=== PATIENT | male | born 1955 | race Caucasian/White ===

== ENCOUNTER 2018-03-27 19:16 | Emergency (ER) | payer BC, MEDICARE ==
[~2018-03-27] VITALS: Ht 195.6 cm; Wt 115.8 kg
[~2018-03-27 19:16] MED LIST: ATOR20TA PO; CLOP75TA35 PO; FEXO1TAB8 PO; FURO-150 PO; HYDR-4070 PO; INSU100I13 SQ; LANTUS SQ; MULT-785 PO
[2018-03-27 21:27] LABS: ALANINE AMINOTRANSFERASE 27 U/L (12-78); ALBUMIN 3.2 G/DL (3.4-5.0); ALBUMIN/GLOBULIN RATIO 1.1 (1.1-1.5); ALKALINE PHOSPHATASE 145 IU/L (46-116); ANION GAP 10 (8-16); ASPARTATE AMINO TRANSFERASE 20 U/L (10-37); BILIRUBIN,TOTAL 0.4 MG/DL (0.1-1.0); BLOOD UREA NITROGEN 50 MG/DL (7-18); BUN/CREATININE RATIO 23.1 (5.4-32.0); CALCIUM 7.7 MG/DL (8.5-10.1); CHLORIDE 108 MMOL/L (99-107); CREATININE 2.16 MG/DL (0.60-1.10); GLUCOSE 180 MG/DL (70-104); POTASSIUM 3.7 MMOL/L (3.5-5.1); SODIUM 146 MMOL/L (135-145); TOTAL CARBON DIOXIDE 27.8 MMOL/L (24-32); TOTAL PROTEIN 6.2 G/DL (6.4-8.2); eGFR 31 ML/MIN
[2018-03-27 21:38] LABS: BASOPHILS % (AUTO) 0.4 % (0-1); EOSINOPHILS # (AUTO) 0.1 X10'3 (0-0.9); EOSINOPHILS % (AUTO) 2.2 % (0-6); HEMATOCRIT 31.8 % (42.0-52.0); HEMOGLOBIN 10.9 g/dl (14.0-17.9); LYMPHOCYTES # (AUTO) 0.7 X10'3 (1.1-4.8); LYMPHOCYTES % (AUTO) 16.3 % (21-51); MEAN CORPUSCULAR HEMOGLOBIN 30.8 PG (27.0-31.0); MEAN CORPUSCULAR HGB CONC 34.3 % (33.0-36.5); MEAN CORPUSCULAR VOLUME 89.8 FL (78-98); MEAN PLATELET VOLUME 10.4 FL (7.4-10.4); MONOCYTES # (AUTO) 0.4 X10'3 (0-0.9); MONOCYTES % (AUTO) 9.1 % (2-12); NEUTROPHILS # (AUTO) 3.2 X10'3 (1.8-7.7); PLATELET COUNT 107 X10'3 (140-440); RED BLOOD COUNT 3.54 X10'6 (4.70-6.10); RED CELL DISTRIBUTION WIDTH 12.8 % (11.5-14.5); WHITE BLOOD COUNT 4.4 X10'3 (4.5-11.0)
[2018-03-27 22:02] LABS: PARTIAL THROMBOPLASTIN TIME 25 SECONDS (22-32); PROTHROMBIN TIME 10.5 SECONDS (9.0-12.0)
[2018-03-27 22:07] VITALS: BP 154/81
[2018-03-27] MEDS ORDERED: apixaban 5mg tablet PO STA (22:18)
[2018-03-27] MEDS ORDERED: APIX5TAB3 PO (22:18)
[2018-03-27] MEDS ORDERED: HYDR-4353 PO (22:53)
[2018-03-27] MEDS ORDERED: HYDROcodone/acetaminophen 10/325mg tab PO ONE (22:55)
== END 2018-03-27 23:02 | disposition home or self-care (01) ==
LOC: ER 19:17
DX: I82.4Z2 Acute embolism and thrombosis of unspecified deep veins of left distal lower extremity (principal); I12.9 Hypertensive chronic kidney disease with stage 1 through stage 4 chronic kidney disease, or unspecified chronic kidney disease; E11.22 Type 2 diabetes mellitus with diabetic chronic kidney disease; N18.9 Chronic kidney disease, unspecified; Z86.73 Personal history of transient ischemic attack (TIA), and cerebral infarction without residual deficits; Z86.14 Personal history of Methicillin resistant Staphylococcus aureus infection; Z90.49 Acquired absence of other specified parts of digestive tract; Z98.890 Other specified postprocedural states; Z88.5 Allergy status to narcotic agent; Z79.899 Other long term (current) drug therapy; Z79.4 Long term (current) use of insulin; Z79.01 Long term (current) use of anticoagulants
CPT/HCPCS: 36415; 80053; 85025; 85610; 85730; 93971; 99285

== ENCOUNTER 2019-02-19 11:45 | Emergency (ER) | payer BC, MEDICARE ==
[~2019-02-19] VITALS: Ht 195.6 cm; Wt 116.0 kg
[~2019-02-19 11:45] MED LIST changes: +APIX5TAB3 PO; +DICY10CA88 PO
[2019-02-19 13:30] LABS: CLARITY,URINE TURBID (Clear); COLOR,URINE YELLOW (Yellow); GLUCOSE, URINE 100 mg/dl (Neg); KETONES,URINE NEGATIVE (Neg); LEUKOCYTE ESTERASE ,URINE TRACE (Neg); NITRITES, URINE NEGATIVE (Neg); OCCULT BLOOD,URINE LARGE (Neg); PH,URINE 5.5 (4.8-8.0); PROTEIN,URINE >=300 mg/dl (Neg); UROBILINOGEN,URINE 0.2 E.U/dL (0.2-1.0)
[2019-02-19 13:31] LABS: UA COLLECTION TYPE CLN CATCH MIDSTREAM
[2019-02-19 13:39] LABS: SQUAMOUS EPITHELIAL CELL,UR FEW /LPF (FEW)
[2019-02-19 13:40] LABS: HYALINE CASTS 0-3 /LPF (NEGATIVE); MUCUS STRANDS NONE SEEN /LPF (Neg); RENAL CELLS, URINE FEW /HPF; TRANSITIONAL EPI CELLS,URINE MANY /HPF
[2019-02-19 13:41] LABS: BACTERIA,URINE FEW /HPF (Neg); RBC,URINE TNTC /HPF (0-2); WBC,URINE 30-50 /HPF (0-4)
--- NOTE | 2019-02-19 14:28 | NUR ---
Note [place] in EDM - 02/19/19 at 1431 by MALINI RT AT BEDSIDE, STARTING ALBUTEROL 10MG CONTINUOUS. 02 SAT 98% NON-REBREATHER HR 126, RR 30, TEMP 100.[address] MCKEE. LUNGS AUDIBLE WHZ AND WHEEZING THRUOUT. GRUNTING, RETRACTING AND PURSE LIP BREATHING
[2019-02-19 15:13] VITALS: BP 153/64
[2019-02-19] MEDS ORDERED: CEPH-572 PO (16:39)
[2019-02-19 17:23] LABS: BASOPHILS # (AUTO) 0.1 X10'3 (0-0.2); BASOPHILS % (AUTO) 0.7 % (0-1); EOSINOPHILS # (AUTO) 0.1 X10'3 (0-0.9); EOSINOPHILS % (AUTO) 0.5 % (0-6); HEMATOCRIT 34.3 % (42.0-52.0); HEMOGLOBIN 11.5 g/dl (14.0-17.9); LYMPHOCYTES # (AUTO) 0.8 X10'3 (1.1-4.8); LYMPHOCYTES % (AUTO) 6.9 % (21-51); MEAN CORPUSCULAR HEMOGLOBIN 29.4 PG (27.0-31.0); MEAN CORPUSCULAR HGB CONC 33.4 g/dL (33.0-36.5); MEAN PLATELET VOLUME 9.9 FL (7.4-10.4); MONOCYTES # (AUTO) 1.2 X10'3 (0-0.9); MONOCYTES % (AUTO) 10.1 % (2-12); NEUTROPHILS # (AUTO) 9.5 X10'3 (1.8-7.7); NEUTROPHILS % (AUTO) 81.8 % (42-75); PLATELET COUNT 83 X10'3 (140-440); RED CELL DISTRIBUTION WIDTH 14.5 % (11.5-14.5); WHITE BLOOD COUNT 11.6 X10'3 (4.5-11.0)
[2019-02-19 17:32] LABS: ALANINE AMINOTRANSFERASE 30 U/L (12-78); ALBUMIN 3.1 G/DL (3.4-5.0); ALBUMIN/GLOBULIN RATIO 0.9 (1.1-1.5); ALKALINE PHOSPHATASE 88 IU/L (46-116); ANION GAP 8 (8-16); ASPARTATE AMINO TRANSFERASE 24 U/L (10-37); BILIRUBIN,TOTAL 0.8 MG/DL (0.1-1.0); BLOOD UREA NITROGEN 51 MG/DL (7-18); BUN/CREATININE RATIO 20.2 (5.4-32.0); CALCIUM 7.6 MG/DL (8.5-10.1); CHLORIDE 106 MMOL/L (99-107); CREATININE 2.52 MG/DL (0.60-1.10); GLUCOSE 235 MG/DL (70-104); POTASSIUM 4.2 MMOL/L (3.5-5.1); SODIUM 138 MMOL/L (135-145); TOTAL CARBON DIOXIDE 24.2 MMOL/L (24-32); TOTAL PROTEIN 6.5 G/DL (6.4-8.2); eGFR 26 ML/MIN
--- NOTE | 2019-02-19 18:06 | NUR ---
liliana laird spoke to the pt already explained the d/c instruction,pt aware about the follow up with dr ibarra urologist.
== END 2019-02-19 18:08 | disposition home or self-care (01) ==
LOC: ER 11:46
DX: N39.0 Urinary tract infection, site not specified (principal); R31.9 Hematuria, unspecified; I25.10 Atherosclerotic heart disease of native coronary artery without angina pectoris; I12.9 Hypertensive chronic kidney disease with stage 1 through stage 4 chronic kidney disease, or unspecified chronic kidney disease; E11.22 Type 2 diabetes mellitus with diabetic chronic kidney disease; N18.9 Chronic kidney disease, unspecified; E11.42 Type 2 diabetes mellitus with diabetic polyneuropathy; Z86.718 Personal history of other venous thrombosis and embolism; Z90.49 Acquired absence of other specified parts of digestive tract; Z98.890 Other specified postprocedural states; Z86.73 Personal history of transient ischemic attack (TIA), and cerebral infarction without residual deficits; Z87.442 Personal history of urinary calculi; Z88.8 Allergy status to other drugs, medicaments and biological substances; Z79.899 Other long term (current) drug therapy; Z79.4 Long term (current) use of insulin
CPT/HCPCS: 36415; 80053; 81001; 85025; 87077; 87088; 87186; 99283

== ENCOUNTER 2020-09-10 11:16 | Emergency (ER) | payer OTHER, BC ==
[~2020-09-10] VITALS: Ht 195.6 cm; Wt 114.5 kg
[~2020-09-10 11:16] MED LIST changes: +CLOP75TA34 PO; -CLOP75TA35 PO
--- NOTE | 2020-09-10 14:11 | NUR ---
Vascular at bedside.
[2020-09-10] MEDS ORDERED: apixaban 5mg tablet PO STA (15:01)
[2020-09-10] MEDS ORDERED: APIX5TAB3 PO (15:06)
[2020-09-10 15:37] VITALS: BP 183/84
== END 2020-09-10 15:40 | disposition home or self-care (01) ==
LOC: ER 11:17
DX: I82.431 Acute embolism and thrombosis of right popliteal vein (principal); I82.441 Acute embolism and thrombosis of right tibial vein; E11.42 Type 2 diabetes mellitus with diabetic polyneuropathy; I25.10 Atherosclerotic heart disease of native coronary artery without angina pectoris; E11.22 Type 2 diabetes mellitus with diabetic chronic kidney disease; I13.0 Hypertensive heart and chronic kidney disease with heart failure and stage 1 through stage 4 chronic kidney disease, or unspecified chronic kidney disease; N18.9 Chronic kidney disease, unspecified; Z87.442 Personal history of urinary calculi; Z86.14 Personal history of Methicillin resistant Staphylococcus aureus infection; Z86.718 Personal history of other venous thrombosis and embolism; Z86.73 Personal history of transient ischemic attack (TIA), and cerebral infarction without residual deficits; Z90.49 Acquired absence of other specified parts of digestive tract
CPT/HCPCS: 93971; 99284

== ENCOUNTER 2022-01-22 04:36 | Inpatient (IN) | payer MEDICARE, BC ==
[~2022-01-22] VITALS: Ht 195.6 cm; Wt 113.6 kg
[~2022-01-22 04:36] MED LIST changes: +ALLO100T PO; -APIX5TAB3 PO; -ATOR20TA PO; +ATOR40TA72 PO; +BENZ-38 PO; +Benzocaine/Menthol MM; +CARV25TA56 PO; +CLOP75TA15 PO; -CLOP75TA34 PO; -DICY10CA88 PO; -FURO-150 PO; +FURO40TA4 PO; +INSU100I31 SQ; -LANTUS SQ; +LEVO-65 PO; +LOPE-144 PO; +PRED10TA23 PO
[2022-01-22] MEDS ORDERED: normal saline 1000ml 1,000 ML IV ONE (04:45)
[2022-01-22] MEDS ORDERED: acetaminophen 325mg tablet PO ONE (04:50)
[2022-01-22 05:05] LABS: BASOPHILS % (AUTO) 0.3 % (0-1); EOSINOPHILS # (AUTO) 0.1 X10'3 (0-0.9); EOSINOPHILS % (AUTO) 1.2 % (0-6); HEMATOCRIT 33.1 % (42.0-52.0); HEMOGLOBIN 11.2 g/dl (14.0-17.9); LYMPHOCYTES # (AUTO) 0.3 X10'3 (1.1-4.8); LYMPHOCYTES % (AUTO) 3.4 % (21-51); MEAN CORPUSCULAR HEMOGLOBIN 30.3 PG (27.0-31.0); MEAN CORPUSCULAR HGB CONC 33.9 g/dL (33.0-36.5); MEAN CORPUSCULAR VOLUME 89.5 FL (78-98); MEAN PLATELET VOLUME 10.4 FL (7.4-10.4); MONOCYTES # (AUTO) 0.3 X10'3 (0-0.9); MONOCYTES % (AUTO) 3.5 % (2-12); NEUTROPHILS # (AUTO) 7.8 X10'3 (1.8-7.7); NEUTROPHILS % (AUTO) 91.6 % (42-75); PLATELET COUNT 100 X10'3 (140-440); RED CELL DISTRIBUTION WIDTH 14.4 % (11.5-14.5); WHITE BLOOD COUNT 8.5 X10'3 (4.5-11.0)
[2022-01-22 05:14] LABS: ALANINE AMINOTRANSFERASE 20 U/L (12-78); ALBUMIN/GLOBULIN RATIO 0.8 (1.1-1.5); ALKALINE PHOSPHATASE 101 IU/L (46-116); ANION GAP 19 (8-16); ASPARTATE AMINO TRANSFERASE 18 U/L (10-37); BILIRUBIN,TOTAL 0.8 MG/DL (0.1-1.0); BLOOD UREA NITROGEN 99 MG/DL (7-18); BUN/CREATININE RATIO 27.8 (5.4-32.0); CALCIUM 7.5 MG/DL (8.5-10.1); CHLORIDE 105 MMOL/L (99-107); CREATININE 3.56 MG/DL (0.60-1.10); GLUCOSE 434 MG/DL (70-104); MAGNESIUM 2.2 MG/DL (1.5-2.4); POTASSIUM 4.7 MMOL/L (3.5-5.1); SODIUM 141 MMOL/L (135-145); TOTAL CARBON DIOXIDE 16.9 MMOL/L (24-32); eGFR 17 ML/MIN
[2022-01-22 05:25] LABS: UA COLLECTION TYPE CLN CATCH MIDSTREAM
[2022-01-22 05:26] LABS: CLARITY,URINE CLEAR (Clear); COLOR,URINE YELLOW (Yellow); GLUCOSE, URINE >=1000 mg/dl (Neg); KETONES,URINE NEGATIVE (Neg); LEUKOCYTE ESTERASE ,URINE NEGATIVE (Neg); NITRITES, URINE NEGATIVE (Neg); OCCULT BLOOD,URINE SMALL (Neg); PROTEIN,URINE >=300 mg/dl (Neg); UROBILINOGEN,URINE 0.2 E.U/dL (0.2-1.0)
[2022-01-22] MEDS ORDERED: insulin regular, human 10 units/0.1 ml syringe IV ONE (05:30)
[2022-01-22 05:33] LABS: BACTERIA,URINE NONE SEEN /HPF (Neg); SQUAMOUS EPITHELIAL CELL,UR FEW /LPF (FEW); WBC,URINE NONE SEEN /HPF (0-4)
[2022-01-22] MEDS ORDERED: CefTRIAXone/D5W-Rocephin 1gm 50 ML IV ONE (05:40)
[2022-01-22] MEDS ORDERED: azithromycin/NS 500mg/250ml 250 ML IV ONE (05:40)
[2022-01-22] MEDS ORDERED: vancomycin/NS 1 GM ADD-VANTAGE 250 ML IV ONE (05:40)
[2022-01-22] MEDS ORDERED: potassium CL 10mEq/100ml bag 100 ML IV PRN (09:45)
[2022-01-22] MEDS ORDERED: magnesium hydroxide 30ml (MOM) UD suspension PO PRN (09:45)
[2022-01-22] MEDS ORDERED: magnesium 4gm in 100ml NS 100 ML IV PRN (09:45)
[2022-01-22] MEDS ORDERED: dextrose 50%-water 50ml dispensing syringe IV PRN ×2 (09:45)
[2022-01-22] MEDS ORDERED: HYDROcodone/acetaminophen 5mg/325mg tablet PO PRN (09:45)
[2022-01-22] MEDS ORDERED: ondansetron/PF 4mg/2ml inj IV PRN (09:45)
[2022-01-22] MEDS ORDERED: glucagon, human recombinant 1mg kit SUBCUT PRN (09:45)
[2022-01-22] MEDS ORDERED: HYDROcodone/acetaminophen 10/325mg tab PO PRN (09:45)
[2022-01-22] MEDS ORDERED: magnesium 2GM in 50ml NS 50 ML IV PRN (09:45)
[2022-01-22] MEDS ORDERED: magnesium Cl slow-release 64mg tablet PO PRN (09:45)
[2022-01-22] MEDS ORDERED: mag hydrox/Alum hydrox/simeth 30ml oral suspension PO PRN (09:45)
[2022-01-22] MEDS ORDERED: DEXTROSE 15 GM of carb/4 tabs (each vial/BOTTLE has 4 tablets) PO PRN ×2 (09:45)
[2022-01-22] MEDS ORDERED: MESSAGE TO PHARMACY PO ONE (09:45)
[2022-01-22] MEDS ORDERED: POTASSIUM BICARB 20meq eff tab 20 MEQ TABLET.EFF PO PRN ×2 (09:45)
[2022-01-22] MEDS ORDERED: ipratropium/albuterol 3ml nebule NEB PRN (09:50)
[2022-01-22] MEDS ORDERED: PRED10TA PO (14:21)
[2022-01-22] MEDS ORDERED: BENZ-49 PO (14:21)
[2022-01-22] MEDS ORDERED: LEVO-65 PO (14:24)
[2022-01-22] MEDS ORDERED: LOPE2TAB25 PO (14:27)
[2022-01-22] MEDS ORDERED: BENZ1LOZ74 MM (14:34)
[2022-01-22] MEDS: heparin, porcine 5000 units/ml vial SQ SCH ×2 (16:00→23:48)
[2022-01-22] MEDS: insulin Lispro (HumaLOG) vial - multi-dose SQ SCH (17:59)
--- NOTE | 2022-01-22 17:59 | NUR ---
offered pt norco for pain, pt declined
--- NOTE | 2022-01-22 18:27 | NUR ---
Patient in room ED 2. I have received report from LALIT CROWLEY and had the opportunity to ask questions and assume patient care. Addendum: 01/22/22 at 1827 by Anuradha Sabillon RN Amended: Links added.
[2022-01-22] MEDS: K and/or MAG REPLACEMENT MC SCH (20:00)
--- NOTE | 2022-01-22 20:20 | NUR ---
Problems reprioritized. Patient report given, questions answered & plan of care reviewed with LALIT YEPEZ. Addendum: 01/22/22 at 2044 by Anuradha Sabillon RN Amended: Links added.
[2022-01-22] MEDS: insulin glargine (Lantus) pen - multi-dose SQ SCH (22:25)
[2022-01-22 22:30] VITALS: BP 200/78
[2022-01-22] MEDS: hydrALAZINE 20mg/ml inj. IV PRN (22:33)
--- NOTE | 2022-01-22 22:44 | NUR ---
Dr Clay ordered hydralazine for the patient BP of 200/78 HR 74
[2022-01-22] MEDS: docusate sod 100mg capsule PO SCH (23:49)
[2022-01-23] VITALS (8 sets, daily range): BP systolic 127–183; BP diastolic 56–68
[2022-01-23] MEDS: acetaminophen 325mg tablet PO PRN ×2 (00:05→13:37)
--- NOTE | 2022-01-23 01:10 | NUR ---
Pt had a temp of 102.2 gave Tylenol and temp now down to 99.9.
[2022-01-23] MEDS: vancomycin inj 500 MG in normal saline 100ml IV soln 100 ML IV SCH (04:41)
[2022-01-23 06:34] LABS: BASOPHILS % (AUTO) 0.1 % (0-1); EOSINOPHILS # (AUTO) 0.2 X10'3 (0-0.9); EOSINOPHILS % (AUTO) 2.6 % (0-6); HEMATOCRIT 27.8 % (42.0-52.0); HEMOGLOBIN 9.3 g/dl (14.0-17.9); LYMPHOCYTES # (AUTO) 0.4 X10'3 (1.1-4.8); MEAN CORPUSCULAR HEMOGLOBIN 30.2 PG (27.0-31.0); MEAN CORPUSCULAR HGB CONC 33.4 g/dL (33.0-36.5); MEAN CORPUSCULAR VOLUME 90.6 FL (78-98); MEAN PLATELET VOLUME 10.2 FL (7.4-10.4); MONOCYTES # (AUTO) 0.5 X10'3 (0-0.9); NEUTROPHILS # (AUTO) 6.3 X10'3 (1.8-7.7); NEUTROPHILS % (AUTO) 84.3 % (42-75); PLATELET COUNT 91 X10'3 (140-440); RED BLOOD COUNT 3.07 X10'6 (4.70-6.10); RED CELL DISTRIBUTION WIDTH 14.8 % (11.5-14.5); WHITE BLOOD COUNT 7.4 X10'3 (4.5-11.0)
--- NOTE | 2022-01-23 06:38 | NUR ---
Problems reprioritized. Patient report given, questions answered & plan of care reviewed with LALIT Vincent.
[2022-01-23 06:55] LABS: ALANINE AMINOTRANSFERASE 16 U/L (12-78); ALBUMIN 2.4 G/DL (3.4-5.0); ALBUMIN/GLOBULIN RATIO 0.7 (1.1-1.5); ALKALINE PHOSPHATASE 62 IU/L (46-116); ANION GAP 17 (8-16); ASPARTATE AMINO TRANSFERASE 26 U/L (10-37); BILIRUBIN,TOTAL 0.6 MG/DL (0.1-1.0); BLOOD UREA NITROGEN 83 MG/DL (7-18); BUN/CREATININE RATIO 23.8 (5.4-32.0); CALCIUM 7.1 MG/DL (8.5-10.1); CHLORIDE 112 MMOL/L (99-107); CREATININE 3.49 MG/DL (0.60-1.10); GLUCOSE 290 MG/DL (70-104); POTASSIUM 4.2 MMOL/L (3.5-5.1); SODIUM 145 MMOL/L (135-145); TOTAL CARBON DIOXIDE 15.6 MMOL/L (24-32); eGFR 18 ML/MIN
[2022-01-23] MEDS: CefTRIAXone/D5W-Rocephin 1gm 50 ML IV SCH (07:18)
[2022-01-23] MEDS: K and/or MAG REPLACEMENT MC SCH ×2 (07:20→20:00)
[2022-01-23] MEDS ORDERED: PSEUDOEPHEDRINE PO PRN (07:20)
[2022-01-23] MEDS: docusate sod 100mg capsule PO SCH ×2 (07:20→20:00)
[2022-01-23] MEDS ORDERED: FEXOFENADINE HCL PO PRN (07:20)
[2022-01-23] MEDS: heparin, porcine 5000 units/ml vial SQ SCH ×2 (08:00→15:37)
--- NOTE | 2022-01-23 08:19 | NUR ---
Per EMR pt with T2DM, A1c 7.9% 01/16. Pt provided with DM education and RD contact information 01/17 at previous admit. No further education planned at this time though will remain available. Addendum: 01/23/22 at [address] Amended: Links added.
--- NOTE | 2022-01-23 08:26 | NUR ---
ok to hold hep d/t Plt 91
[2022-01-23] MEDS: insulin Lispro (HumaLOG) vial - multi-dose SQ SCH ×4 (09:00→22:15)
[2022-01-23] MEDS: multivitamins, therapeutics tablet PO SCH (09:04)
[2022-01-23] MEDS: furosemide 20 MG/2 ML vial IV SCH ×2 (09:04→20:02)
[2022-01-23] MEDS: hydrALAZINE 25 MG tablet PO SCH ×2 (09:05→15:32)
[2022-01-23] MEDS: carVEDilol 12.5mg tablet PO SCH ×2 (09:05→20:01)
[2022-01-23] MEDS: loperamide 2mg capsule PO SCH ×2 (09:06→15:32)
[2022-01-23] MEDS: atorvastatin 20mg tablet PO SCH (09:06)
[2022-01-23] MEDS: clopidogrel 75mg tablet PO SCH (09:06)
[2022-01-23] MEDS: allopurinol 100mg tablet PO SCH ×2 (09:06→20:01)
--- NOTE | 2022-01-23 10:15 | NUR ---
Received call from Samm, of pt. She advised that she has covid as well as 3 other family members. 1 who lives with and pt. The other 2 live in their own houses. Also, Dr Ortega and Dr Marina follow pt outpatient. Advised MD of all info.
--- NOTE | 2022-01-23 12:39 | NUR ---
"Paged PAGER ID: [phone] MESSAGE: [phone]|Sayra Sandoval. pt req Tylenol for headache. Tylenol on file for fever only. Thanks, Melisa [phone]"
--- NOTE | 2022-01-23 18:41 | NUR ---
Problems reprioritized. Patient report given, questions answered & plan of care reviewed with Pat Stewart RN.
--- NOTE | 2022-01-23 18:45 | NUR ---
Patient in room PCU 3024. I have received report from SYL COHN and had the opportunity to ask questions and assume patient care.
[2022-01-23] MEDS: insulin glargine (Lantus) pen - multi-dose SQ SCH (22:14)
[2022-01-24] MEDS: loperamide 2mg capsule PO SCH ×3 (00:45→16:37)
[2022-01-24] MEDS: hydrALAZINE 25 MG tablet PO SCH ×3 (00:52→16:38)
[2022-01-24 02:00] VITALS: BP 143/62
[2022-01-24] MEDS: vancomycin inj 500 MG in normal saline 100ml IV soln 100 ML IV SCH (05:39)
[2022-01-24 06:00] VITALS: BP 155/70
--- NOTE | 2022-01-24 06:45 | NUR ---
Problems reprioritized. Patient report given, questions answered & plan of care reviewed with GLENYS COHN.
[2022-01-24 07:50] LABS: BASOPHILS % (AUTO) 0.2 % (0-1); EOSINOPHILS # (AUTO) 0.4 X10'3 (0-0.9); EOSINOPHILS % (AUTO) 5.6 % (0-6); HEMATOCRIT 29.7 % (42.0-52.0); LYMPHOCYTES # (AUTO) 0.5 X10'3 (1.1-4.8); LYMPHOCYTES % (AUTO) 6.2 % (21-51); MEAN CORPUSCULAR HEMOGLOBIN 30.2 PG (27.0-31.0); MEAN CORPUSCULAR HGB CONC 33.6 g/dL (33.0-36.5); MEAN PLATELET VOLUME 10.5 FL (7.4-10.4); MONOCYTES # (AUTO) 0.7 X10'3 (0-0.9); MONOCYTES % (AUTO) 9.2 % (2-12); NEUTROPHILS # (AUTO) 6.2 X10'3 (1.8-7.7); NEUTROPHILS % (AUTO) 78.8 % (42-75); PLATELET COUNT 110 X10'3 (140-440); RED CELL DISTRIBUTION WIDTH 15.1 % (11.5-14.5); WHITE BLOOD COUNT 7.9 X10'3 (4.5-11.0)
[2022-01-24] MEDS: docusate sod 100mg capsule PO SCH ×2 (08:00→20:00)
[2022-01-24 08:22] LABS: ALANINE AMINOTRANSFERASE 30 U/L (12-78); ALBUMIN 2.5 G/DL (3.4-5.0); ALBUMIN/GLOBULIN RATIO 0.7 (1.1-1.5); ALKALINE PHOSPHATASE 67 IU/L (46-116); ANION GAP 20 (8-16); ASPARTATE AMINO TRANSFERASE 48 U/L (10-37); BILIRUBIN,TOTAL 0.5 MG/DL (0.1-1.0); BLOOD UREA NITROGEN 88 MG/DL (7-18); BUN/CREATININE RATIO 24.8 (5.4-32.0); CALCIUM 7.9 MG/DL (8.5-10.1); CHLORIDE 111 MMOL/L (99-107); CREATININE 3.55 MG/DL (0.60-1.10); GLUCOSE 200 MG/DL (70-104); POTASSIUM 3.9 MMOL/L (3.5-5.1); SODIUM 148 MMOL/L (135-145); TOTAL CARBON DIOXIDE 16.9 MMOL/L (24-32); TOTAL PROTEIN 6.3 G/DL (6.4-8.2); eGFR 17 ML/MIN
[2022-01-24] MEDS: K and/or MAG REPLACEMENT MC SCH ×2 (08:43→20:00)
[2022-01-24] MEDS: furosemide 20 MG/2 ML vial IV SCH ×2 (08:56→20:01)
[2022-01-24] MEDS: CefTRIAXone/D5W-Rocephin 1gm 50 ML IV SCH (08:56)
[2022-01-24] MEDS: heparin, porcine 5000 units/ml vial SQ SCH ×3 (08:58→16:39)
[2022-01-24] MEDS: clopidogrel 75mg tablet PO SCH (08:58)
[2022-01-24] MEDS: atorvastatin 20mg tablet PO SCH (08:58)
[2022-01-24] MEDS: carVEDilol 12.5mg tablet PO SCH ×2 (08:59→20:01)
[2022-01-24] MEDS: allopurinol 100mg tablet PO SCH (08:59)
[2022-01-24] MEDS: multivitamins, therapeutics tablet PO SCH (08:59)
[2022-01-24] MEDS: insulin Lispro (HumaLOG) vial - multi-dose SQ SCH ×2 (09:30→13:45)
[2022-01-24 11:30] VITALS: BP 139/65
[2022-01-24 18:30] VITALS: BP 136/54
[2022-01-24] MEDS: insulin glargine (Lantus) pen - multi-dose SQ SCH (22:56)
[2022-01-24 23:00] VITALS: BP 141/88
[2022-01-25] MEDS: heparin, porcine 5000 units/ml vial SQ SCH ×3 (00:05→16:00)
[2022-01-25] MEDS: hydrALAZINE 25 MG tablet PO SCH ×3 (00:21→16:00)
[2022-01-25 03:00] VITALS: BP 152/62
[2022-01-25] MEDS ORDERED: VANCOMYCIN LEVEL IV ONE (04:30)
[2022-01-25] MEDS: vancomycin inj 500 MG in normal saline 100ml IV soln 100 ML IV SCH (05:28)
[2022-01-25 05:33] LABS: ALANINE AMINOTRANSFERASE 45 U/L (12-78); ALBUMIN 2.3 G/DL (3.4-5.0); ALBUMIN/GLOBULIN RATIO 0.7 (1.1-1.5); ALKALINE PHOSPHATASE 78 IU/L (46-116); ANION GAP 15 (8-16); ASPARTATE AMINO TRANSFERASE 52 U/L (10-37); BILIRUBIN,TOTAL 0.4 MG/DL (0.1-1.0); BLOOD UREA NITROGEN 87 MG/DL (7-18); BUN/CREATININE RATIO 24.1 (5.4-32.0); CALCIUM 7.4 MG/DL (8.5-10.1); CHLORIDE 110 MMOL/L (99-107); CREATININE 3.61 MG/DL (0.60-1.10); GLUCOSE 210 MG/DL (70-104); POTASSIUM 3.8 MMOL/L (3.5-5.1); SODIUM 143 MMOL/L (135-145); TOTAL CARBON DIOXIDE 17.6 MMOL/L (24-32); TOTAL PROTEIN 5.8 G/DL (6.4-8.2); VANCOMYCIN,TROUGH 11.1 UG/ML (6.0-14.0); eGFR 17 ML/MIN
[2022-01-25 06:00] VITALS: BP 155/66
--- NOTE | 2022-01-25 06:58 | NUR ---
Patient in room PCU 3024. I have received report from Williams COHN and had the opportunity to ask questions and assume patient care.
[2022-01-25] MEDS: K and/or MAG REPLACEMENT MC SCH ×2 (08:00→20:00)
[2022-01-25] MEDS: docusate sod 100mg capsule PO SCH ×3 (08:00→21:13)
[2022-01-25] MEDS: loperamide 2mg capsule PO SCH ×4 (08:00→16:00)
[2022-01-25 08:22] LABS: BASOPHILS % (AUTO) 0.3 % (0-1); EOSINOPHILS # (AUTO) 0.3 X10'3 (0-0.9); HEMATOCRIT 27.3 % (42.0-52.0); LYMPHOCYTES # (AUTO) 0.5 X10'3 (1.1-4.8); LYMPHOCYTES % (AUTO) 8.1 % (21-51); MEAN CORPUSCULAR HEMOGLOBIN 29.8 PG (27.0-31.0); MEAN CORPUSCULAR HGB CONC 32.9 g/dL (33.0-36.5); MEAN CORPUSCULAR VOLUME 90.6 FL (78-98); MEAN PLATELET VOLUME 10.5 FL (7.4-10.4); MONOCYTES # (AUTO) 0.5 X10'3 (0-0.9); MONOCYTES % (AUTO) 8.5 % (2-12); NEUTROPHILS # (AUTO) 4.4 X10'3 (1.8-7.7); NEUTROPHILS % (AUTO) 78.1 % (42-75); PLATELET COUNT 106 X10'3 (140-440); RED BLOOD COUNT 3.02 X10'6 (4.70-6.10); RED CELL DISTRIBUTION WIDTH 14.7 % (11.5-14.5); WHITE BLOOD COUNT 5.6 X10'3 (4.5-11.0)
[2022-01-25] MEDS: CefTRIAXone/D5W-Rocephin 1gm 50 ML IV SCH (09:07)
[2022-01-25] MEDS: atorvastatin 20mg tablet PO SCH (09:07)
[2022-01-25] MEDS: multivitamins, therapeutics tablet PO SCH (09:08)
[2022-01-25] MEDS: carVEDilol 12.5mg tablet PO SCH ×2 (09:08→21:14)
[2022-01-25] MEDS: clopidogrel 75mg tablet PO SCH (09:08)
[2022-01-25] MEDS: allopurinol 100mg tablet PO SCH (09:08)
[2022-01-25] MEDS: furosemide 20 MG/2 ML vial IV SCH ×2 (09:09→21:13)
[2022-01-25] MEDS: insulin Lispro (HumaLOG) vial - multi-dose SQ SCH ×3 (09:43→21:07)
[2022-01-25] MEDS: guaiFENesin/codeine phos 10ml UD oral syrup PO PRN (09:45)
[2022-01-25 11:00] VITALS: BP 111/91
[2022-01-25 15:00] VITALS: BP 131/89
[2022-01-25] MEDS: dexamethasone 4mg/ml inj IV SCH ×2 (15:59→21:15)
--- NOTE | 2022-01-25 18:26 | NUR ---
Patient in room PCU 3023T. I have received report from Donna COHN and had the opportunity to ask questions and assume patient care.
[2022-01-25 19:00] VITALS: BP 146/69
--- NOTE | 2022-01-25 19:17 | NUR ---
Problems reprioritized. Patient report given, questions answered & plan of care reviewed with Brianne RN, patient stable at transfer of care.
[2022-01-25] MEDS: insulin glargine (Lantus) pen - multi-dose SQ SCH (21:12)
[2022-01-25 22:00] VITALS: BP 117/59
[2022-01-26] MEDS: hydrALAZINE 25 MG tablet PO SCH ×3 (00:18→16:56)
[2022-01-26] MEDS: VANCOMYCIN 750MG IV in NS 250 ML IV SCH (05:12)
--- NOTE | 2022-01-26 06:20 | NUR ---
Problems reprioritized. Patient report given, questions answered & plan of care reviewed with Gini COHN.
--- NOTE | 2022-01-26 06:30 | NUR ---
Received report from LALIT Decker, POC discussed, all questions answered, assumed care of patient.
[2022-01-26 06:58] VITALS: BP 145/76
[2022-01-26 07:00] VITALS: BP 167/75
--- NOTE | 2022-01-26 07:00 | NUR ---
incorrect vs entered on patient temp 98.4 oral Pulse 60 Resp 16 O2 98 on 5L NC BP 167/75
[2022-01-26 07:55] LABS: ALANINE AMINOTRANSFERASE 45 U/L (12-78); ALBUMIN 2.2 G/DL (3.4-5.0); ALBUMIN/GLOBULIN RATIO 0.6 (1.1-1.5); ALKALINE PHOSPHATASE 79 IU/L (46-116); ANION GAP 18 (8-16); ASPARTATE AMINO TRANSFERASE 43 U/L (10-37); BILIRUBIN,TOTAL 0.4 MG/DL (0.1-1.0); BLOOD UREA NITROGEN 90 MG/DL (7-18); BUN/CREATININE RATIO 24.8 (5.4-32.0); CALCIUM 7.6 MG/DL (8.5-10.1); CHLORIDE 108 MMOL/L (99-107); CREATININE 3.63 MG/DL (0.60-1.10); GLUCOSE 324 MG/DL (70-104); POTASSIUM 4.6 MMOL/L (3.5-5.1); SODIUM 137 MMOL/L (135-145); TOTAL PROTEIN 6.1 G/DL (6.4-8.2); eGFR 17 ML/MIN
[2022-01-26] MEDS: allopurinol 100mg tablet PO SCH (08:00)
[2022-01-26] MEDS: furosemide 20 MG/2 ML vial IV SCH ×2 (08:00→20:14)
[2022-01-26] MEDS: K and/or MAG REPLACEMENT MC SCH ×3 (08:00→19:58)
[2022-01-26 08:01] LABS: TOTAL CARBON DIOXIDE 11.5 MMOL/L (24-32)
--- NOTE | 2022-01-26 08:04 | NUR ---
PAGER ID: [phone] MESSAGE: MAXWELL Rubalcava, [id number], re:Jaime, 3024A, crit CO2 11.5, O2 5L, 98% Addendum: 01/26/22 at 0848 by Gini Garcia RN Per Dr Werner, orders received, hold this 0800 dose of lasix, 1 L NS bolus, BMP at 1500, q 2 hours accu checks with correctional insulin until glucose stabilizes. Lantus 10 units now
[2022-01-26] MEDS ORDERED: insulin glargine (Lantus) pen - multi-dose SQ ONE (08:40)
[2022-01-26] MEDS ORDERED: normal saline 1000ml 1,000 ML IVB ONE (08:40)
[2022-01-26] MEDS: guaiFENesin/codeine phos 10ml UD oral syrup PO PRN (09:16)
[2022-01-26] MEDS: heparin, porcine 5000 units/ml vial SQ SCH ×3 (09:16→16:56)
[2022-01-26] MEDS: clopidogrel 75mg tablet PO SCH (09:18)
[2022-01-26] MEDS: dexamethasone 4mg/ml inj IV SCH ×2 (09:18→20:14)
[2022-01-26] MEDS: carVEDilol 12.5mg tablet PO SCH ×2 (09:19→20:14)
[2022-01-26] MEDS: docusate sod 100mg capsule PO SCH ×3 (09:20→20:00)
[2022-01-26] MEDS: multivitamins, therapeutics tablet PO SCH (09:20)
[2022-01-26] MEDS: atorvastatin 20mg tablet PO SCH (09:21)
[2022-01-26] MEDS: loperamide 2mg capsule PO SCH ×4 (09:23→16:00)
[2022-01-26] MEDS: CefTRIAXone/D5W-Rocephin 1gm 50 ML IV SCH (09:24)
[2022-01-26] MEDS: insulin Lispro (HumaLOG) vial - multi-dose SQ SCH ×3 (10:15→15:25)
[2022-01-26 10:48] VITALS: BP_SYST 181
--- NOTE | 2022-01-26 11:37 | NUR ---
Glucose checked, 461 at 1115, at 1015 46 units short acting given, will recheck at 1215.
--- NOTE | 2022-01-26 12:05 | NUR ---
PAGED DR. HICKEY REGARDING PCR TEST. PAGER ID: [phone] MESSAGE: [id number]. SARAVANAN ROSSI. PCR TEST BEING DONE. THANK YOU. CARLOS COHN X [phone]
--- NOTE | 2022-01-26 12:45 | NUR ---
PAGER ID: [phone] MESSAGE: LALIT Rubalcava, U, 9161, re: Jaime, 3024A, glucose 436, got 46 u at 1015, will treat w/ 40u + nutritional
--- NOTE | 2022-01-26 14:23 | NUR ---
Initial: Pt admit for acute hypoxemic respiratory failure with possible PNA. Pt tested negative for COVID though in airborne precautions as his entire family that was taking care of him is COVID positive per physician notes. Pt on a CHO controlled diet and overall eating poorly with average 38% PO intake of 9 meals, however up to 100% PO intake at breakfast this morning. LBM 8/4, with routine bowel care available though pt refuses at times per EMR. Will follow closely and make recommendations as appropriate pending further trends in PO intake given improvement this morning. Recommendations: 1) Continue CHO controlled diet 2) Monitor need for ONS/additional protein 3) Bowel care per rx 4) Scaled weight this admit; subsequent weekly scaled weights Addendum: 01/26/22 at [address] Amended: Links added.
[2022-01-26 14:38] LABS: BASOPHILS % (AUTO) 0.2 % (0-1); EOSINOPHILS % (AUTO) 0 % (0-6); HEMOGLOBIN 8.9 g/dl (14.0-17.9); LYMPHOCYTES # (AUTO) 0.2 X10'3 (1.1-4.8); LYMPHOCYTES % (AUTO) 2.5 % (21-51); MEAN CORPUSCULAR HEMOGLOBIN 30.1 PG (27.0-31.0); MEAN CORPUSCULAR VOLUME 91.3 FL (78-98); MONOCYTES # (AUTO) 0.2 X10'3 (0-0.9); MONOCYTES % (AUTO) 2.2 % (2-12); NEUTROPHILS # (AUTO) 6.9 X10'3 (1.8-7.7); NEUTROPHILS % (AUTO) 95.1 % (42-75); PLATELET COUNT 104 X10'3 (140-440); RED BLOOD COUNT 2.96 X10'6 (4.70-6.10); RED CELL DISTRIBUTION WIDTH 15.1 % (11.5-14.5); WHITE BLOOD COUNT 7.3 X10'3 (4.5-11.0)
[2022-01-26 14:46] LABS: ALBUMIN 2.2 G/DL (3.4-5.0); ANION GAP 16 (8-16); BLOOD UREA NITROGEN 95 MG/DL (7-18); CALCIUM 7.3 MG/DL (8.5-10.1); CHLORIDE 104 MMOL/L (99-107); CREATININE 3.65 MG/DL (0.60-1.10); POTASSIUM 4.6 MMOL/L (3.5-5.1); SODIUM 136 MMOL/L (135-145); TOTAL CARBON DIOXIDE 15.8 MMOL/L (24-32); eGFR 17 ML/MIN
[2022-01-26 14:49] LABS: GLUCOSE 457 MG/DL (70-104)
[2022-01-26 15:00] VITALS: BP 141/66
--- NOTE | 2022-01-26 15:06 | NUR ---
PAGER ID: [phone] MESSAGE: LALIT Rubalcava, [facility], [phone], re: Jaime [id number]; crit glucose on bmp 475 , recheck at BS 400, 49 units given at 1323; do I give 35 units now or wait and check in 30 min? TY Addendum: 01/26/22 at 1535 by Krista Mccall RN Dr Werner called back primary RN at lunch. I advised Dr Werner that patients most recent accucheck was 374 Primary RN gave patient [address] Werner he will be putting in orders for DKA and ok to start protocol when primary RN gets back from Lunch due to patient just received insulin.
[2022-01-26] MEDS ORDERED: sodium phosphate inj. 30 MMOL in dextrose 5%-water 250 ML IV PRN (15:30)
[2022-01-26] MEDS ORDERED: Insulin Reg/NS 100units/100mL 100 ML IV SCH (15:30)
[2022-01-26] MEDS ORDERED: insulin regular, human U-100 3ml vial - multi-dose IV PRN (15:30)
[2022-01-26] MEDS ORDERED: potassium Cl 20 mEq SR tablet PO PRN ×2 (15:30)
[2022-01-26] MEDS ORDERED: potassium CL 20mEq in D5-1/2NS 1,000 ML IV PRN (15:30)
[2022-01-26] MEDS ORDERED: sodium phosphate inj. 15 MMOL in dextrose 5%-water 250 ML IV PRN (15:30)
[2022-01-26] MEDS ORDERED: potassium Cl 40MEQ/1/2NS 520ml 520 ML IV PRN ×2 (15:30)
[2022-01-26] MEDS ORDERED: Neutra Phos packet PO PRN (15:30)
[2022-01-26] MEDS: normal saline 1000ml 1,000 ML IV SCH ×4 (16:57→23:30)
[2022-01-26 18:00] VITALS: BP 152/62
--- NOTE | 2022-01-26 19:54 | NUR ---
Patient in room PCU 3024. I have received report from Gini COHN and had the opportunity to ask questions and assume patient care.
[2022-01-26 20:18] LABS: ALBUMIN 2.2 G/DL (3.4-5.0); ANION GAP 17 (8-16); BLOOD UREA NITROGEN 93 MG/DL (7-18); BUN/CREATININE RATIO 26.3 (5.4-32.0); CALCIUM 7.1 MG/DL (8.5-10.1); CHLORIDE 107 MMOL/L (99-107); CREATININE 3.53 MG/DL (0.60-1.10); GLUCOSE 171 MG/DL (70-104); PHOSPHORUS 4.8 MG/DL (2.3-4.5); POTASSIUM 3.9 MMOL/L (3.5-5.1); SODIUM 139 MMOL/L (135-145); eGFR 17 ML/MIN
[2022-01-26 20:21] LABS: TOTAL CARBON DIOXIDE 14.7 MMOL/L (24-32)
[2022-01-26] MEDS: insulin glargine (Lantus) pen - multi-dose SQ SCH (21:00)
[2022-01-26 22:00] VITALS: BP 137/54
[2022-01-26 23:06] LABS: ALBUMIN 2.2 G/DL (3.4-5.0); ANION GAP 12 (8-16); BLOOD UREA NITROGEN 91 MG/DL (7-18); BUN/CREATININE RATIO 26.5 (5.4-32.0); CALCIUM 7.2 MG/DL (8.5-10.1); CHLORIDE 109 MMOL/L (99-107); CREATININE 3.43 MG/DL (0.60-1.10); GLUCOSE 115 MG/DL (70-104); POTASSIUM 4.1 MMOL/L (3.5-5.1); SODIUM 137 MMOL/L (135-145); TOTAL CARBON DIOXIDE 15.6 MMOL/L (24-32); eGFR 18 ML/MIN
[2022-01-27] MEDS: hydrALAZINE 25 MG tablet PO SCH ×4 (00:06→23:44)
[2022-01-27] MEDS: heparin, porcine 5000 units/ml vial SQ SCH ×4 (00:10→23:39)
[2022-01-27] MEDS: normal saline 1000ml 1,000 ML IV SCH ×5 (00:50→15:30)
[2022-01-27] MEDS ORDERED: Insulin Reg/NS 100units/100mL 100 ML IV SCH (01:10)
[2022-01-27] MEDS ORDERED: Dextrose 10%-water IV solution 1,000 ML IV SCH (01:30)
[2022-01-27 02:00] VITALS: BP 145/68
[2022-01-27] MEDS: VANCOMYCIN 750MG IV in NS 250 ML IV SCH (05:32)
--- NOTE | 2022-01-27 05:52 | NUR ---
0500 BS: 191. Dr. Clay notified, no new orders at this time. Cont. D10 @ 100/HR, Insulin @ 3U/HR, Q1HR BS.
[2022-01-27 06:00] VITALS: BP 137/68
[2022-01-27 06:57] LABS: BASOPHILS % (AUTO) 0.2 % (0-1); EOSINOPHILS % (AUTO) 0.1 % (0-6); HEMATOCRIT 25.6 % (42.0-52.0); HEMOGLOBIN 8.7 g/dl (14.0-17.9); LYMPHOCYTES # (AUTO) 0.3 X10'3 (1.1-4.8); LYMPHOCYTES % (AUTO) 3.2 % (21-51); MEAN CORPUSCULAR HEMOGLOBIN 30.6 PG (27.0-31.0); MEAN CORPUSCULAR HGB CONC 33.9 g/dL (33.0-36.5); MEAN CORPUSCULAR VOLUME 90.4 FL (78-98); MEAN PLATELET VOLUME 9.9 FL (7.4-10.4); MONOCYTES # (AUTO) 0.2 X10'3 (0-0.9); MONOCYTES % (AUTO) 2.2 % (2-12); NEUTROPHILS # (AUTO) 9.9 X10'3 (1.8-7.7); NEUTROPHILS % (AUTO) 94.3 % (42-75); PLATELET COUNT 123 X10'3 (140-440); RED BLOOD COUNT 2.83 X10'6 (4.70-6.10); RED CELL DISTRIBUTION WIDTH 14.7 % (11.5-14.5); WHITE BLOOD COUNT 10.5 X10'3 (4.5-11.0)
[2022-01-27 07:08] LABS: ALANINE AMINOTRANSFERASE 53 U/L (12-78); ALBUMIN 2.2 G/DL (3.4-5.0); ALBUMIN/GLOBULIN RATIO 0.6 (1.1-1.5); ALKALINE PHOSPHATASE 79 IU/L (46-116); ANION GAP 15 (8-16); ASPARTATE AMINO TRANSFERASE 47 U/L (10-37); BILIRUBIN,TOTAL 0.3 MG/DL (0.1-1.0); BLOOD UREA NITROGEN 91 MG/DL (7-18); BUN/CREATININE RATIO 28.2 (5.4-32.0); CALCIUM 7.2 MG/DL (8.5-10.1); CHLORIDE 106 MMOL/L (99-107); CREATININE 3.23 MG/DL (0.60-1.10); GLUCOSE 192 MG/DL (70-104); PHOSPHORUS 5.7 MG/DL (2.3-4.5); POTASSIUM 4.3 MMOL/L (3.5-5.1); SODIUM 137 MMOL/L (135-145); TOTAL CARBON DIOXIDE 16.1 MMOL/L (24-32); TOTAL PROTEIN 5.8 G/DL (6.4-8.2); eGFR 19 ML/MIN
--- NOTE | 2022-01-27 07:20 | NUR ---
Problems reprioritized. Patient report given, questions answered & plan of care reviewed with Gini COHN.
[2022-01-27] MEDS: loperamide 2mg capsule PO SCH ×3 (08:00→16:00)
[2022-01-27] MEDS: docusate sod 100mg capsule PO SCH ×2 (08:00→20:00)
[2022-01-27] MEDS: K and/or MAG REPLACEMENT MC SCH ×4 (08:00→20:16)
[2022-01-27] MEDS: dexamethasone 4mg/ml inj IV SCH ×2 (08:35→19:53)
[2022-01-27] MEDS: furosemide 20 MG/2 ML vial IV SCH ×3 (08:35→19:53)
[2022-01-27] MEDS: guaiFENesin/codeine phos 10ml UD oral syrup PO PRN ×2 (08:36→23:38)
[2022-01-27] MEDS: atorvastatin 20mg tablet PO SCH (08:37)
[2022-01-27] MEDS: allopurinol 100mg tablet PO SCH (08:37)
[2022-01-27] MEDS: clopidogrel 75mg tablet PO SCH (08:37)
[2022-01-27] MEDS: carVEDilol 12.5mg tablet PO SCH ×2 (08:37→18:14)
[2022-01-27] MEDS: CefTRIAXone/D5W-Rocephin 1gm 50 ML IV SCH (08:38)
--- NOTE | 2022-01-27 09:07 | NUR ---
PAGER ID: [phone] MESSAGE: LALIT Rubalcava [phone], PCU, pt 3024A, Lasix held yesterday, do you want it held today? last glucose 213, ins gtt at 3? TY Addendum: 01/27/22 at 0939 by Gini Garcia RN Spoke with Dr Werner, orders to d/c insulin gtt, d/c D10 fluids, hold lasix this a.m. , let pt eat breakfast, and give pt 10 units lantus, continue q 1 hour accu checks. Hold next dose carvedilol, d/t HR dropping to 48.
[2022-01-27] MEDS ORDERED: insulin glargine (Lantus) pen - multi-dose SQ ONE ×3 (09:45→21:00)
[2022-01-27] MEDS: multivitamins, therapeutics tablet PO SCH (09:55)
[2022-01-27] MEDS: insulin Lispro (HumaLOG) vial - multi-dose SQ SCH ×6 (12:15→19:44)
[2022-01-27 12:24] VITALS: BP 144/76
--- NOTE | 2022-01-27 15:40 | NUR ---
PAGER ID: [phone] MESSAGE: LALIT Rubalcava, PCU 5401, re:[id number], last accucheck 357, rec 24 units ins correctional; has received total 45 unit Humalog and the 10 lantus. Has had break and lunch. TY
[2022-01-27 16:30] VITALS: BP 139/52
--- NOTE | 2022-01-27 17:09 | NUR ---
PAGER ID: [phone] MESSAGE: LALIT Rubalcava, U 5441, RE: [id number], Jaime, last glucose 302 23 units given, on level 6, 78 u Humalog total given since ins gtt d/c'd, + 10 lanearl,, TY Addendum: 01/27/22 at 1716 by Gini Garcia RN Spoke with Dr Werner, received order for lantus 20 u at [facility], [facility] in a.m. and switch to ACCU check ACHS
[2022-01-27] MEDS ORDERED: DEXTROSE 15 GM of carb/4 tabs (each vial/BOTTLE has 4 tablets) PO PRN ×2 (17:25)
[2022-01-27] MEDS ORDERED: glucagon, human recombinant 1mg kit SUBCUT PRN (17:25)
[2022-01-27] MEDS ORDERED: insulin Lispro (HumaLOG) vial - multi-dose SQ SCH (17:25)
[2022-01-27] MEDS ORDERED: dextrose 50%-water 50ml dispensing syringe IV PRN (17:25)
[2022-01-27 18:00] VITALS: BP 144/57
--- NOTE | 2022-01-27 18:00 | NUR ---
Insulin gtt off at approx 1100, continued q 1 hour accu check until 1800, now achs, 20 unit lantus to be given tonight per Dr Werner order, verified with pharmacy. Report given to LALIT Barrientos, plan of care discussed, all questions answered.
--- NOTE | 2022-01-27 18:45 | NUR ---
Patient in room PCU 3024. I have received report from Gini and had the opportunity to ask questions and assume patient care.
[2022-01-27] MEDS ORDERED: insulin glargine (Lantus) pen - multi-dose SQ SCH (21:00)
[2022-01-27] MEDS: insulin glargine (Lantus) pen - multi-dose SQ SCH (21:00)
[2022-01-27 22:00] VITALS: BP 139/56
--- NOTE | 2022-01-28 00:45 | NUR ---
According to MD order QHS 20 units lantus, patient GFR is 19, did 10 units lantus.
[2022-01-28 02:00] VITALS: BP 142/73
[2022-01-28] MEDS: VANCOMYCIN 750MG IV in NS 250 ML IV SCH (05:01)
[2022-01-28 06:00] VITALS: BP 161/68
--- NOTE | 2022-01-28 07:10 | NUR ---
Problems reprioritized. Patient report given, questions answered & plan of care reviewed with
[2022-01-28 07:20] LABS: ALBUMIN 2.2 G/DL (3.4-5.0); ANION GAP 14 (8-16); BLOOD UREA NITROGEN 103 MG/DL (7-18); BUN/CREATININE RATIO 30.8 (5.4-32.0); CALCIUM 6.9 MG/DL (8.5-10.1); CHLORIDE 109 MMOL/L (99-107); CREATININE 3.34 MG/DL (0.60-1.10); GLUCOSE 234 MG/DL (70-104); POTASSIUM 4.6 MMOL/L (3.5-5.1); SODIUM 137 MMOL/L (135-145); eGFR 18 ML/MIN
[2022-01-28 07:24] LABS: TOTAL CARBON DIOXIDE 13.9 MMOL/L (24-32)
--- NOTE | 2022-01-28 07:31 | NUR ---
Tatiana, [facility] 0[address] Jaime Copeland 5919r Critical lab: C02 13.9
--- NOTE | 2022-01-28 07:31 | NUR ---
Critical lab message sent to dr scott C02 13.4
[2022-01-28] MEDS: K and/or MAG REPLACEMENT MC SCH ×4 (08:00→20:00)
[2022-01-28] MEDS: loperamide 2mg capsule PO SCH ×3 (08:00→15:05)
[2022-01-28] MEDS: insulin Lispro (HumaLOG) vial - multi-dose SQ SCH ×3 (09:17→19:49)
[2022-01-28] MEDS: dexamethasone 4mg/ml inj IV SCH (09:25)
[2022-01-28] MEDS: furosemide 20 MG/2 ML vial IV SCH ×2 (09:26→20:11)
[2022-01-28] MEDS: docusate sod 100mg capsule PO SCH ×2 (09:27→20:00)
[2022-01-28] MEDS: clopidogrel 75mg tablet PO SCH (09:27)
[2022-01-28] MEDS: carVEDilol 12.5mg tablet PO SCH ×2 (09:28→19:49)
[2022-01-28] MEDS: atorvastatin 20mg tablet PO SCH (09:28)
[2022-01-28] MEDS: allopurinol 100mg tablet PO SCH (09:28)
[2022-01-28] MEDS: multivitamins, therapeutics tablet PO SCH (09:29)
[2022-01-28] MEDS: hydrALAZINE 25 MG tablet PO SCH ×2 (09:30→17:27)
[2022-01-28] MEDS: heparin, porcine 5000 units/ml vial SQ SCH ×2 (09:34→17:25)
[2022-01-28] MEDS: CefTRIAXone/D5W-Rocephin 1gm 50 ML IV SCH (09:39)
[2022-01-28 15:00] VITALS: BP 133/82
--- NOTE | 2022-01-28 18:45 | NUR ---
Patient in room PCU 3024. I have received report from Tatiana COHN and had the opportunity to ask questions and assume patient care.
--- NOTE | 2022-01-28 19:06 | NUR ---
REPORT GIVEN TO DARRIN COHN, PT IN ROOM, ATE DINNER. NO CURRENT DISTRESS.
[2022-01-28] MEDS: insulin glargine (Lantus) pen - multi-dose SQ SCH (20:12)
[2022-01-28 20:16] VITALS: BP 149/66
[2022-01-28 22:00] VITALS: BP 155/59
[2022-01-29] MEDS: heparin, porcine 5000 units/ml vial SQ SCH ×3 (00:48→17:16)
[2022-01-29] MEDS: hydrALAZINE 25 MG tablet PO SCH ×3 (00:49→17:16)
[2022-01-29 02:00] VITALS: BP 133/67
--- NOTE | 2022-01-29 02:00 | NUR ---
Patient in room PCU 3024. I have received report from KEMAR Ford and had the opportunity to ask questions and assume patient care. Patient is sleeping comfortably.
[2022-01-29] MEDS ORDERED: VANCOMYCIN LEVEL IV ONE (04:30)
[2022-01-29 04:54] LABS: VANCOMYCIN,TROUGH 18.9 UG/ML (6.0-14.0)
--- NOTE | 2022-01-29 05:17 | NUR ---
Vanco Trough 18.9, I spoke with pharmacist and was advised to give 0500 Vanco
[2022-01-29] MEDS: VANCOMYCIN 750MG IV in NS 250 ML IV SCH (05:19)
[2022-01-29 06:00] VITALS: BP 128/45
--- NOTE | 2022-01-29 06:25 | NUR ---
Patient in room PCU 3024. I have received report from LALIT Grey and had the opportunity to ask questions and assume patient care.
[2022-01-29] MEDS: CefTRIAXone/D5W-Rocephin 1gm 50 ML IV SCH (07:36)
[2022-01-29] MEDS: furosemide 20 MG/2 ML vial IV SCH ×2 (07:37→20:48)
[2022-01-29] MEDS: allopurinol 100mg tablet PO SCH (07:39)
[2022-01-29] MEDS: carVEDilol 12.5mg tablet PO SCH ×2 (07:39→19:30)
[2022-01-29] MEDS: atorvastatin 20mg tablet PO SCH (07:39)
[2022-01-29] MEDS: loperamide 2mg capsule PO SCH ×4 (07:39→19:34)
[2022-01-29] MEDS: clopidogrel 75mg tablet PO SCH (07:39)
[2022-01-29] MEDS: multivitamins, therapeutics tablet PO SCH (07:39)
[2022-01-29] MEDS: docusate sod 100mg capsule PO SCH ×2 (07:40→19:34)
[2022-01-29] MEDS: K and/or MAG REPLACEMENT MC SCH ×4 (08:00→19:34)
[2022-01-29 08:17] LABS: ALBUMIN 2.4 G/DL (3.4-5.0); ANION GAP 17 (8-16); BLOOD UREA NITROGEN 106 MG/DL (7-18); BUN/CREATININE RATIO 31.3 (5.4-32.0); CALCIUM 6.9 MG/DL (8.5-10.1); CHLORIDE 109 MMOL/L (99-107); CREATININE 3.39 MG/DL (0.60-1.10); GLUCOSE 165 MG/DL (70-104); POTASSIUM 4.3 MMOL/L (3.5-5.1); SODIUM 140 MMOL/L (135-145); eGFR 18 ML/MIN
[2022-01-29 08:22] LABS: TOTAL CARBON DIOXIDE 14.2 MMOL/L (24-32)
--- NOTE | 2022-01-29 08:43 | NUR ---
CRITICAL LAB VALUE TAKEN FROM LAB, REPORTED TO PRIMARY RN.
[2022-01-29] MEDS: insulin glargine (Lantus) pen - multi-dose SQ SCH ×2 (09:28→19:28)
[2022-01-29] MEDS: insulin Lispro (HumaLOG) vial - multi-dose SQ SCH ×2 (09:29→19:26)
--- NOTE | 2022-01-29 09:44 | NUR ---
Reassessment; Pt continues on Carb control diet w/ some improvement in PO intake, avg 64% of meals, partially meeting needs. Will recommend Glucerna TID to help meet needs, though if PO does not improve, will consider changing to Ensure Enlive. LBM 8/ receiving routine colace and imodium. Will continue to monitor. Recommendations: 1) Continue CHO controlled diet 2) Glucerna TID; pending MD verification - If PO does not improve, consider Ensure Enlive 3) Bowel care per rx 4) Scaled weight this admit; subsequent weekly scaled weights Addendum: 01/29/22 at [address] Amended: Links added.
[2022-01-29 11:00] VITALS: BP 132/62
[2022-01-29] MEDS ORDERED: NUT.TX.GLUC.INTOLER,LAC-FR,SOY (GLUCERNA) 237 ML PO SCH (13:00)
[2022-01-29 15:00] VITALS: BP 139/64
[2022-01-29 18:00] VITALS: BP 125/68
--- NOTE | 2022-01-29 18:27 | NUR ---
Problems reprioritized. Patient report given, questions answered & plan of care reviewed with KEMAR Harris.
--- NOTE | 2022-01-29 18:30 | NUR ---
Patient in room PCU 3024. I have received report from marco and had the opportunity to ask questions and assume patient care.
[2022-01-29 20:08] LABS: ABG BASE EXCESS -10.8 mmol/L (-2.0-2.0); ABG OXYGEN SATURATION 95.5 % (94-97); ABG PCO2 (T) 23.7 mmHg (35.0-48.0); ABG PO2 (T) 84.1 mmHg (75.0-100.0); FCOHb 0.3 % (0.0-3.9); FLOW 3 L/min; FMetHb 0.3 % (0.0-1.5); FO2Hb 94.9 % (94-97); TOTAL HEMOGLOBIN 10.6 G/dl (14.0-18.0)
[2022-01-29 22:00] VITALS: BP 133/59
[2022-01-30] MEDS: hydrALAZINE 25 MG tablet PO SCH ×3 (00:16→16:00)
[2022-01-30] MEDS: heparin, porcine 5000 units/ml vial SQ SCH ×3 (00:16→17:47)
[2022-01-30 02:00] VITALS: BP 130/63
[2022-01-30] MEDS: VANCOMYCIN 750MG IV in NS 250 ML IV SCH (05:34)
[2022-01-30 06:00] VITALS: BP 114/66
--- NOTE | 2022-01-30 06:15 | NUR ---
Patient in room PCU 3024. I have received report from JOY COHN and had the opportunity to ask questions and assume patient care.
--- NOTE | 2022-01-30 06:23 | NUR ---
Problems reprioritized. Patient report given, questions answered & plan of care reviewed with andrei.
[2022-01-30] MEDS: K and/or MAG REPLACEMENT MC SCH ×4 (08:00→18:34)
[2022-01-30] MEDS: furosemide 20 MG/2 ML vial IV SCH ×2 (08:18→17:46)
[2022-01-30] MEDS: CefTRIAXone/D5W-Rocephin 1gm 50 ML IV SCH (08:19)
[2022-01-30] MEDS: allopurinol 100mg tablet PO SCH (08:19)
[2022-01-30] MEDS: carVEDilol 12.5mg tablet PO SCH ×2 (08:19→19:12)
[2022-01-30] MEDS: multivitamins, therapeutics tablet PO SCH (08:19)
[2022-01-30] MEDS: docusate sod 100mg capsule PO SCH (08:19)
[2022-01-30] MEDS: loperamide 2mg capsule PO SCH ×3 (08:19→19:13)
[2022-01-30] MEDS: atorvastatin 20mg tablet PO SCH (08:19)
[2022-01-30] MEDS: clopidogrel 75mg tablet PO SCH (08:19)
[2022-01-30] MEDS: insulin glargine (Lantus) pen - multi-dose SQ SCH (09:40)
[2022-01-30] MEDS ORDERED: insulin regular, human U-100 3ml vial - multi-dose IV PRN (09:40)
--- NOTE | 2022-01-30 09:51 | NUR ---
NON ADMIN LANTUS THIS AM PER DR QUIROZ ORDER CHANGED FROM BID TO DAILY, START TOMORROW
[2022-01-30 10:00] VITALS: BP 146/77
[2022-01-30 10:17] LABS: BASOPHILS % (AUTO) 0.2 % (0-1); EOSINOPHILS % (AUTO) 0.6 % (0-6); HEMATOCRIT 28.8 % (42.0-52.0); HEMOGLOBIN 9.4 g/dl (14.0-17.9); LYMPHOCYTES # (AUTO) 0.3 X10'3 (1.1-4.8); LYMPHOCYTES % (AUTO) 5.2 % (21-51); MEAN CORPUSCULAR HEMOGLOBIN 29.7 PG (27.0-31.0); MEAN CORPUSCULAR HGB CONC 32.8 g/dL (33.0-36.5); MEAN CORPUSCULAR VOLUME 90.6 FL (78-98); MONOCYTES # (AUTO) 0.7 X10'3 (0-0.9); MONOCYTES % (AUTO) 11.5 % (2-12); NEUTROPHILS # (AUTO) 4.8 X10'3 (1.8-7.7); NEUTROPHILS % (AUTO) 82.5 % (42-75); PLATELET COUNT 128 X10'3 (140-440); RED BLOOD COUNT 3.18 X10'6 (4.70-6.10); WHITE BLOOD COUNT 5.8 X10'3 (4.5-11.0)
[2022-01-30 10:29] LABS: ALANINE AMINOTRANSFERASE 53 U/L (12-78); ALBUMIN 2.3 G/DL (3.4-5.0); ALBUMIN/GLOBULIN RATIO 0.6 (1.1-1.5); ALKALINE PHOSPHATASE 120 IU/L (46-116); ANION GAP 18 (8-16); ASPARTATE AMINO TRANSFERASE 37 U/L (10-37); BILIRUBIN,TOTAL 0.3 MG/DL (0.1-1.0); BLOOD UREA NITROGEN 108 MG/DL (7-18); BUN/CREATININE RATIO 30.8 (5.4-32.0); CALCIUM 6.9 MG/DL (8.5-10.1); CHLORIDE 106 MMOL/L (99-107); CREATININE 3.51 MG/DL (0.60-1.10); GLUCOSE 220 MG/DL (70-104); POTASSIUM 4.1 MMOL/L (3.5-5.1); SODIUM 140 MMOL/L (135-145); TOTAL CARBON DIOXIDE 16.5 MMOL/L (24-32); TOTAL PROTEIN 5.9 G/DL (6.4-8.2); eGFR 17 ML/MIN
[2022-01-30] MEDS: insulin Lispro (HumaLOG) vial - multi-dose SQ SCH ×2 (10:34→14:18)
[2022-01-30 15:00] VITALS: BP 143/66
[2022-01-30] MEDS: hydrALAZINE 20mg/ml inj. IV PRN (17:48)
[2022-01-30 18:00] VITALS: BP 140/68
--- NOTE | 2022-01-30 18:30 | NUR ---
Patient in room PCU 3024. I have received report from andrei and had the opportunity to ask questions and assume patient care.
[2022-01-30 22:00] VITALS: BP 138/67
[2022-01-31] MEDS: heparin, porcine 5000 units/ml vial SQ SCH ×3 (00:08→16:44)
[2022-01-31] MEDS: hydrALAZINE 25 MG tablet PO SCH ×3 (00:09→16:43)
[2022-01-31 02:00] VITALS: BP 137/68
--- NOTE | 2022-01-31 06:10 | NUR ---
Problems reprioritized. Patient report given, questions answered & plan of care reviewed with julia.
--- NOTE | 2022-01-31 06:12 | NUR ---
Patient in room PCU 3024. I have received report from LALIT Harris and had the opportunity to ask questions and assume patient care.
[2022-01-31 07:02] VITALS: BP 128/77
[2022-01-31] MEDS ORDERED: cyclobenzaprine 10mg tablet PO ONE (07:55)
[2022-01-31] MEDS: K and/or MAG REPLACEMENT MC SCH ×4 (08:00→20:00)
[2022-01-31] MEDS: carVEDilol 12.5mg tablet PO SCH ×2 (08:01→19:43)
[2022-01-31] MEDS: atorvastatin 20mg tablet PO SCH (08:02)
[2022-01-31] MEDS: allopurinol 100mg tablet PO SCH (08:02)
[2022-01-31] MEDS: loperamide 2mg capsule PO SCH ×3 (08:02→21:10)
[2022-01-31] MEDS: clopidogrel 75mg tablet PO SCH (08:02)
[2022-01-31] MEDS: furosemide 20 MG/2 ML vial IV SCH (08:02)
[2022-01-31] MEDS: multivitamins, therapeutics tablet PO SCH (08:02)
[2022-01-31] MEDS: insulin Lispro (HumaLOG) vial - multi-dose SQ SCH ×4 (09:08→22:09)
[2022-01-31] MEDS: insulin glargine (Lantus) pen - multi-dose SQ SCH (09:09)
[2022-01-31 11:09] VITALS: BP 121/63
[2022-01-31 12:48] LABS: D-DIMER 4.47 MG/L FEU (0-0.50)
[2022-01-31] MEDS: dexamethasone 4mg/ml inj IV SCH ×2 (12:57→20:46)
[2022-01-31 15:41] VITALS: BP 115/69
[2022-01-31 18:00] VITALS: BP 144/70
--- NOTE | 2022-01-31 18:14 | NUR ---
Problems reprioritized. Patient report given, questions answered & plan of care reviewed with KEMAR Harris.
[2022-01-31 22:00] VITALS: BP 153/73
[2022-02-01] MEDS: hydrALAZINE 25 MG tablet PO SCH ×3 (00:05→16:41)
[2022-02-01] MEDS: heparin, porcine 5000 units/ml vial SQ SCH ×3 (00:06→16:41)
[2022-02-01 02:00] VITALS: BP 150/74
--- NOTE | 2022-02-01 03:45 | NUR ---
Review WOOD BORER assessment and in agreement. VSS -pt stated earlier that he doesn't feel great he does think he is getting a little stronger.
[2022-02-01 06:06] LABS: D-DIMER 3.01 MG/L FEU (0-0.50)
--- NOTE | 2022-02-01 06:08 | NUR ---
Problems reprioritized. Patient report given, questions answered & plan of care reviewed with julia.
[2022-02-01 06:11] LABS: ALANINE AMINOTRANSFERASE 39 U/L (12-78); ALBUMIN 2.4 G/DL (3.4-5.0); ALBUMIN/GLOBULIN RATIO 0.7 (1.1-1.5); ALKALINE PHOSPHATASE 152 IU/L (46-116); ANION GAP 16 (8-16); ASPARTATE AMINO TRANSFERASE 24 U/L (10-37); BASOPHILS % (AUTO) 0.2 % (0-1); BILIRUBIN,TOTAL 0.3 MG/DL (0.1-1.0); BLOOD UREA NITROGEN 106 MG/DL (7-18); BUN/CREATININE RATIO 32.8 (5.4-32.0); C-REACTIVE PROTEIN 5.64 MG/DL (0.0-0.5); CALCIUM 7.2 MG/DL (8.5-10.1); CHLORIDE 108 MMOL/L (99-107); CREATININE 3.23 MG/DL (0.60-1.10); EOSINOPHILS % (AUTO) 0.1 % (0-6); GLUCOSE 290 MG/DL (70-104); HEMATOCRIT 25.5 % (42.0-52.0); HEMOGLOBIN 8.5 g/dl (14.0-17.9); LACTATE DEHYDROGENASE 277 U/L (85-227); LYMPHOCYTES # (AUTO) 0.2 X10'3 (1.1-4.8); LYMPHOCYTES % (AUTO) 4.1 % (21-51); MAGNESIUM 2.2 MG/DL (1.5-2.4); MEAN CORPUSCULAR HEMOGLOBIN 29.9 PG (27.0-31.0); MEAN CORPUSCULAR HGB CONC 33.2 g/dL (33.0-36.5); MEAN CORPUSCULAR VOLUME 90.1 FL (78-98); MEAN PLATELET VOLUME 9.6 FL (7.4-10.4); MONOCYTES # (AUTO) 0.1 X10'3 (0-0.9); MONOCYTES % (AUTO) 1.3 % (2-12); NEUTROPHILS # (AUTO) 4.9 X10'3 (1.8-7.7); NEUTROPHILS % (AUTO) 94.3 % (42-75); PHOSPHORUS 6.4 MG/DL (2.3-4.5); PLATELET COUNT 122 X10'3 (140-440); POTASSIUM 4.8 MMOL/L (3.5-5.1); RED BLOOD COUNT 2.83 X10'6 (4.70-6.10); RED CELL DISTRIBUTION WIDTH 15.2 % (11.5-14.5); SODIUM 140 MMOL/L (135-145); TOTAL CARBON DIOXIDE 16.1 MMOL/L (24-32); TOTAL PROTEIN 5.9 G/DL (6.4-8.2); WHITE BLOOD COUNT 5.2 X10'3 (4.5-11.0); eGFR 19 ML/MIN
--- NOTE | 2022-02-01 06:36 | NUR ---
Patient in room PCU 3024. I have received report from KEMAR Harris and had the opportunity to ask questions and assume patient care.
[2022-02-01 06:52] VITALS: BP 125/71
[2022-02-01 07:19] LABS: TOTAL CELLS COUNTED 100
[2022-02-01 07:20] LABS: PLATELET ESTIMATE DECREASED
[2022-02-01 07:23] LABS: SCHISTOCYTES FEW
[2022-02-01 07:24] LABS: ELLIPTOCYTES FEW
--- NOTE | 2022-02-01 07:29 | NUR ---
slot technician at bedside.
[2022-02-01] MEDS: loperamide 2mg capsule PO SCH ×2 (07:48→16:41)
[2022-02-01] MEDS: allopurinol 100mg tablet PO SCH (07:48)
[2022-02-01] MEDS: carVEDilol 12.5mg tablet PO SCH ×2 (07:48→19:38)
[2022-02-01] MEDS: atorvastatin 20mg tablet PO SCH (07:48)
[2022-02-01] MEDS: furosemide 20 MG/2 ML vial IV SCH (07:48)
[2022-02-01] MEDS: multivitamins, therapeutics tablet PO SCH (07:48)
[2022-02-01] MEDS: clopidogrel 75mg tablet PO SCH (07:48)
[2022-02-01] MEDS: dexamethasone 4mg/ml inj IV SCH ×2 (07:49→20:01)
[2022-02-01] MEDS: K and/or MAG REPLACEMENT MC SCH ×4 (08:00→20:00)
[2022-02-01] MEDS: insulin glargine (Lantus) pen - multi-dose SQ SCH (09:06)
[2022-02-01] MEDS: insulin Lispro (HumaLOG) vial - multi-dose SQ SCH ×3 (09:29→19:43)
--- NOTE | 2022-02-01 09:50 | NUR ---
PAGER ID: [phone] M[facility]AGE[facility] [id number][facility]. Uses a mist that will aerosol covid throughout scan room. Suggested maybe a CT angio- Thank you Wilber [phone]
[2022-02-01 11:19] VITALS: BP 139/61
--- NOTE | 2022-02-01 14:10 | NUR ---
Message: [id number][facility] pt covid. Uses a mist that will aerosol covid throughout scan room. Suggested maybe a CT angio- Thank you Wilber [phone]
[2022-02-01 15:33] VITALS: BP 137/66
[2022-02-01 18:00] VITALS: BP 131/57
--- NOTE | 2022-02-01 18:15 | NUR ---
Problems reprioritized. Patient report given, questions answered & plan of care reviewed with KEMAR Silva.
--- NOTE | 2022-02-01 18:15 | NUR ---
Patient in room PCU 3024. I have received report from Wilber COHN and had the opportunity to ask questions and assume patient care.
[2022-02-01 22:00] VITALS: BP 120/66
[2022-02-02] MEDS: heparin, porcine 5000 units/ml vial SQ SCH ×3 (00:19→16:49)
[2022-02-02] MEDS: hydrALAZINE 25 MG tablet PO SCH ×3 (00:20→16:50)
[2022-02-02 02:00] VITALS: BP 140/65
--- NOTE | 2022-02-02 02:47 | NUR ---
REVIEWED CASUALTY INSURANCE CLAIM ADJUSTER ASSESSMENT AND IN AGREEMENT. PT RESTING COMFORTABLY. BLOOD SUGARS HAVE BEEN HIGH PATIENT CONTINUES ON IV DECADRON
[2022-02-02 06:00] VITALS: BP 151/73
--- NOTE | 2022-02-02 06:07 | NUR ---
Problems reprioritized. Patient report given, questions answered & plan of care reviewed with Annie COHN.
[2022-02-02 06:15] LABS: D-DIMER 3.26 MG/L FEU (0-0.50)
[2022-02-02 06:24] LABS: BASOPHILS % (AUTO) 0.6 % (0-1); EOSINOPHILS % (AUTO) 0.1 % (0-6); HEMATOCRIT 26.1 % (42.0-52.0); HEMOGLOBIN 8.7 g/dl (14.0-17.9); LYMPHOCYTES # (AUTO) 0.3 X10'3 (1.1-4.8); LYMPHOCYTES % (AUTO) 3.8 % (21-51); MEAN CORPUSCULAR HEMOGLOBIN 30.5 PG (27.0-31.0); MEAN CORPUSCULAR HGB CONC 33.5 g/dL (33.0-36.5); MEAN CORPUSCULAR VOLUME 91.1 FL (78-98); MEAN PLATELET VOLUME 9.7 FL (7.4-10.4); MONOCYTES # (AUTO) 0.1 X10'3 (0-0.9); MONOCYTES % (AUTO) 1.9 % (2-12); NEUTROPHILS % (AUTO) 93.6 % (42-75); PLATELET COUNT 120 X10'3 (140-440); RED BLOOD COUNT 2.86 X10'6 (4.70-6.10); RED CELL DISTRIBUTION WIDTH 15.2 % (11.5-14.5); WHITE BLOOD COUNT 7.5 X10'3 (4.5-11.0)
[2022-02-02 06:32] LABS: ALANINE AMINOTRANSFERASE 36 U/L (12-78); ALBUMIN 2.5 G/DL (3.4-5.0); ALBUMIN/GLOBULIN RATIO 0.7 (1.1-1.5); ALKALINE PHOSPHATASE 124 IU/L (46-116); ANION GAP 16 (8-16); ASPARTATE AMINO TRANSFERASE 18 U/L (10-37); BILIRUBIN,TOTAL 0.3 MG/DL (0.1-1.0); BLOOD UREA NITROGEN 119 MG/DL (7-18); BUN/CREATININE RATIO 33.5 (5.4-32.0); C-REACTIVE PROTEIN 3.81 MG/DL (0.0-0.5); CALCIUM 7.4 MG/DL (8.5-10.1); CHLORIDE 106 MMOL/L (99-107); CREATININE 3.55 MG/DL (0.60-1.10); GLUCOSE 198 MG/DL (70-104); LACTATE DEHYDROGENASE 288 U/L (85-227); MAGNESIUM 2.2 MG/DL (1.5-2.4); PHOSPHORUS 7.6 MG/DL (2.3-4.5); POTASSIUM 4.8 MMOL/L (3.5-5.1); SODIUM 138 MMOL/L (135-145); TOTAL CARBON DIOXIDE 15.6 MMOL/L (24-32); TOTAL PROTEIN 6.2 G/DL (6.4-8.2); eGFR 17 ML/MIN
[2022-02-02 07:40] LABS: PLATELET ESTIMATE DECREASED; TOTAL CELLS COUNTED 100
[2022-02-02 07:42] LABS: LARGE PLATELETS FEW
[2022-02-02 07:45] LABS: POIKILOCYTOSIS 1+
[2022-02-02] MEDS: loperamide 2mg capsule PO SCH ×4 (08:00→16:00)
[2022-02-02] MEDS: K and/or MAG REPLACEMENT MC SCH ×4 (08:00→20:00)
[2022-02-02] MEDS: furosemide 20 MG/2 ML vial IV SCH (08:04)
[2022-02-02] MEDS: dexamethasone 4mg/ml inj IV SCH ×2 (08:04→19:40)
[2022-02-02] MEDS: carVEDilol 12.5mg tablet PO SCH ×2 (08:05→20:04)
[2022-02-02] MEDS: atorvastatin 20mg tablet PO SCH (08:06)
[2022-02-02] MEDS: multivitamins, therapeutics tablet PO SCH (08:06)
[2022-02-02] MEDS: clopidogrel 75mg tablet PO SCH (08:06)
[2022-02-02] MEDS: allopurinol 100mg tablet PO SCH (08:06)
[2022-02-02] MEDS: insulin glargine (Lantus) pen - multi-dose SQ SCH (08:45)
[2022-02-02] MEDS: insulin Lispro (HumaLOG) vial - multi-dose SQ SCH ×4 (08:46→21:56)
[2022-02-02 11:00] VITALS: BP 157/76
[2022-02-02] MEDS ORDERED: LORazepam 2 mg/ml vial IV ONE (12:05)
--- NOTE | 2022-02-02 13:28 | NUR ---
Reassessment: ONS still pending physician approval in EMR though PO intake has significantly improved, documented with average 84% PO intake since 01/30. LBM 02/01. No nutrition intervention implemented at this time. Will continue to follow. Recommendations: 1) Continue CHO controlled diet 2) Glucerna TID; pending physician approval in EMR 3) Monitor need for additional protein with meals 4) Bowel care per rx 5) Scaled weight this admit; subsequent weekly scaled weights Addendum: 02/02/22 at [address] Amended: Links added.
--- NOTE | 2022-02-02 13:38 | NUR ---
Patient was unable to tolerate his VQ scan due to feeling short of breath and anxious. Patient was offered oxygen in vq scan and he refused and did not want to proceed with his test. Informed Dr. Hogan that patient was refusing and MD ordered one time dose of Ativan to help patient get through scan. Patient refused ativan and vq scan. Educated patient on why test was ordered and what ativan was meant to help with but patient still refused, stating that he had a really bad experience in the past with MRI and will not proceed even if he was medicated. MD aware that patient continued to refuse
[2022-02-02 18:00] VITALS: BP 159/70
--- NOTE | 2022-02-02 18:10 | NUR ---
Patient in room PCU 3024. I have received report from Annie guzman and had the opportunity to ask questions and assume patient care.
[2022-02-02 22:00] VITALS: BP 161/76
[2022-02-03] MEDS: heparin, porcine 5000 units/ml vial SQ SCH ×2 (01:07→08:03)
[2022-02-03] MEDS: hydrALAZINE 25 MG tablet PO SCH ×3 (01:13→18:42)
--- NOTE | 2022-02-03 04:04 | NUR ---
REVIEWED CHECKOUT OPERATOR CHARTING AND IN AGREEMENT. VITAL SIGNS STABLE. PERIPHERAL IV LEFT HAND WAS LEAKING EARLIER IN THE SHIFT AND I DISCONTINUED IT WITH THE CANNULA INTACT.
[2022-02-03 06:00] VITALS: BP 162/74
[2022-02-03 06:37] LABS: BASOPHILS % (AUTO) 0.7 % (0-1); EOSINOPHILS % (AUTO) 0 % (0-6); HEMATOCRIT 24.8 % (42.0-52.0); HEMOGLOBIN 8.2 g/dl (14.0-17.9); LYMPHOCYTES # (AUTO) 0.3 X10'3 (1.1-4.8); LYMPHOCYTES % (AUTO) 4.2 % (21-51); MEAN CORPUSCULAR HEMOGLOBIN 29.9 PG (27.0-31.0); MEAN CORPUSCULAR HGB CONC 32.9 g/dL (33.0-36.5); MEAN CORPUSCULAR VOLUME 90.8 FL (78-98); MEAN PLATELET VOLUME 9.6 FL (7.4-10.4); MONOCYTES # (AUTO) 0.1 X10'3 (0-0.9); MONOCYTES % (AUTO) 2.4 % (2-12); NEUTROPHILS # (AUTO) 5.7 X10'3 (1.8-7.7); NEUTROPHILS % (AUTO) 92.7 % (42-75); PLATELET COUNT 118 X10'3 (140-440); RED BLOOD COUNT 2.73 X10'6 (4.70-6.10); RED CELL DISTRIBUTION WIDTH 15.1 % (11.5-14.5); WHITE BLOOD COUNT 6.1 X10'3 (4.5-11.0)
--- NOTE | 2022-02-03 06:40 | NUR ---
Problems reprioritized. Patient report given, questions answered & plan of care reviewed with Pam COHN.
--- NOTE | 2022-02-03 06:54 | NUR ---
Patient in room PCU 3024. I have received report from Liliana COHN and had the opportunity to ask questions and assume patient care.
[2022-02-03 07:19] VITALS: BP 161/76
[2022-02-03 07:22] LABS: ALANINE AMINOTRANSFERASE 35 U/L (12-78); ALBUMIN 2.5 G/DL (3.4-5.0); ALBUMIN/GLOBULIN RATIO 0.8 (1.1-1.5); ALKALINE PHOSPHATASE 112 IU/L (46-116); ANION GAP 16 (8-16); ASPARTATE AMINO TRANSFERASE 18 U/L (10-37); BILIRUBIN,TOTAL 0.3 MG/DL (0.1-1.0); BLOOD UREA NITROGEN 123 MG/DL (7-18); BUN/CREATININE RATIO 35.3 (5.4-32.0); C-REACTIVE PROTEIN 2.49 MG/DL (0.0-0.5); CALCIUM 7.4 MG/DL (8.5-10.1); CHLORIDE 108 MMOL/L (99-107); CREATININE 3.48 MG/DL (0.60-1.10); GLUCOSE 202 MG/DL (70-104); LACTATE DEHYDROGENASE 282 U/L (85-227); MAGNESIUM 2.4 MG/DL (1.5-2.4); PHOSPHORUS 7.5 MG/DL (2.3-4.5); POTASSIUM 4.9 MMOL/L (3.5-5.1); SODIUM 139 MMOL/L (135-145); TOTAL PROTEIN 5.8 G/DL (6.4-8.2); eGFR 18 ML/MIN
[2022-02-03 07:24] LABS: TOTAL CARBON DIOXIDE 14.9 MMOL/L (24-32)
--- NOTE | 2022-02-03 07:29 | NUR ---
Critical Reported to MD Message: Min Luna CO2 = 14.9
[2022-02-03] MEDS: allopurinol 100mg tablet PO SCH (07:59)
[2022-02-03] MEDS: multivitamins, therapeutics tablet PO SCH (08:00)
[2022-02-03] MEDS: K and/or MAG REPLACEMENT MC SCH ×4 (08:00→18:32)
[2022-02-03] MEDS: clopidogrel 75mg tablet PO SCH (08:00)
[2022-02-03] MEDS: loperamide 2mg capsule PO SCH ×3 (08:00→16:00)
[2022-02-03] MEDS: atorvastatin 20mg tablet PO SCH (08:00)
[2022-02-03] MEDS: carVEDilol 12.5mg tablet PO SCH ×2 (08:00→20:07)
[2022-02-03] MEDS: furosemide 20 MG/2 ML vial IV SCH (08:00)
[2022-02-03] MEDS: dexamethasone 4mg/ml inj IV SCH ×2 (08:02→20:07)
[2022-02-03] MEDS: insulin glargine (Lantus) pen - multi-dose SQ SCH (09:42)
[2022-02-03] MEDS: insulin Lispro (HumaLOG) vial - multi-dose SQ SCH ×3 (09:45→20:14)
[2022-02-03 11:02] VITALS: BP 155/64
[2022-02-03] MEDS ORDERED: sodium bicarbonate (8.4%) inj. 100 MEQ in sodium chloride 0.45% 900 ML IV SCH (11:05)
[2022-02-03] MEDS ORDERED: heparin 10,000 units/1 ML INJ IV PRN (11:10)
[2022-02-03] MEDS ORDERED: heparin 10,000 units/1 ML INJ IV ONE (11:10)
[2022-02-03] MEDS: sodium bicarbonate (8.4%) inj. 100 MEQ in sodium chloride 0.45% 1,000 ML IV SCH (11:55)
[2022-02-03] MEDS: HEPARIN SOD,PORK IN 0.45% NACL 250 ML IV SCH ×2 (12:02→21:07)
[2022-02-03 15:00] VITALS: BP 154/67
--- NOTE | 2022-02-03 16:49 | NUR ---
PTT recheck >139. Notification to Dr. Hogan 1168 Min Sandoval PTT is >139 After 3 and 1/2 hours on Heparin Drip at the DVT/PE Rate of 2000 units per hour and a loading Bolus of 9000 Units. protocol calls for MD to be notified, and for the drip to be shut off for 2 hours.
--- NOTE | 2022-02-03 17:10 | NUR ---
Samm Sandoval is Nicholson . She has been informed of the high PTT level. She provided information : Out Pt. medical library assistant is Florian Mcdonough of [facility] [phone] Last appointment was on January 09.
[2022-02-03 18:00] VITALS: BP 172/67
--- NOTE | 2022-02-03 21:11 | NUR ---
Deanna Watson to inform of repeat PTT of >139 Addendum: 02/03/22 at 2114 by Luis Garcia RN Drip currently on hold. Was resumed but decreased down to 1600 units at 19:45 after repeat PTT was drawn.
--- NOTE | 2022-02-03 21:30 | NUR ---
Dr. Watson returned call. Stated to hold Heparin and perform a repeat PTT as per protocol. Call with results.
[2022-02-03 22:00] VITALS: BP 159/73
[2022-02-04] MEDS: hydrALAZINE 25 MG tablet PO SCH ×4 (01:16→23:52)
[2022-02-04] MEDS: sodium bicarbonate (8.4%) inj. 100 MEQ in sodium chloride 0.45% 1,000 ML IV SCH ×3 (01:19→23:54)
[2022-02-04] MEDS: HEPARIN SOD,PORK IN 0.45% NACL 250 ML IV SCH (02:30)
[2022-02-04 02:47] VITALS: BP 144/61
[2022-02-04 06:00] VITALS: BP 165/65
--- NOTE | 2022-02-04 06:58 | NUR ---
Patient in room PCU 3024. I have received report from LALIT SEVILLA, and had the opportunity to ask questions and assume patient care.
[2022-02-04 06:59] LABS: BASOPHILS % (AUTO) 0.2 % (0-1); EOSINOPHILS % (AUTO) 0 % (0-6); HEMOGLOBIN 7.8 g/dl (14.0-17.9); LYMPHOCYTES # (AUTO) 0.2 X10'3 (1.1-4.8); LYMPHOCYTES % (AUTO) 3.4 % (21-51); MEAN CORPUSCULAR HEMOGLOBIN 30.5 PG (27.0-31.0); MEAN CORPUSCULAR HGB CONC 34.1 g/dL (33.0-36.5); MEAN CORPUSCULAR VOLUME 89.5 FL (78-98); MEAN PLATELET VOLUME 9.8 FL (7.4-10.4); MONOCYTES # (AUTO) 0.2 X10'3 (0-0.9); MONOCYTES % (AUTO) 3.3 % (2-12); NEUTROPHILS # (AUTO) 5.2 X10'3 (1.8-7.7); NEUTROPHILS % (AUTO) 93.1 % (42-75); PLATELET COUNT 112 X10'3 (140-440); RED BLOOD COUNT 2.57 X10'6 (4.70-6.10); RED CELL DISTRIBUTION WIDTH 15.2 % (11.5-14.5); WHITE BLOOD COUNT 5.6 X10'3 (4.5-11.0)
[2022-02-04 07:17] LABS: D-DIMER 3.92 MG/L FEU (0-0.50)
--- NOTE | 2022-02-04 07:22 | NUR ---
PAGE SENT Message: [id number], SARAVANAN ROSSI, PT'S HGB -7.8, HCT-23. THANK YOU, HOSSEIN Hennessy [phone]
[2022-02-04 07:36] LABS: ALANINE AMINOTRANSFERASE 35 U/L (12-78); ALBUMIN 2.3 G/DL (3.4-5.0); ALBUMIN/GLOBULIN RATIO 0.7 (1.1-1.5); ALKALINE PHOSPHATASE 107 IU/L (46-116); ANION GAP 16 (8-16); ASPARTATE AMINO TRANSFERASE 16 U/L (10-37); BILIRUBIN,TOTAL 0.3 MG/DL (0.1-1.0); BLOOD UREA NITROGEN 127 MG/DL (7-18); BUN/CREATININE RATIO 39.2 (5.4-32.0); C-REACTIVE PROTEIN 1.66 MG/DL (0.0-0.5); CALCIUM 6.9 MG/DL (8.5-10.1); CHLORIDE 105 MMOL/L (99-107); CREATININE 3.24 MG/DL (0.60-1.10); GLUCOSE 204 MG/DL (70-104); LACTATE DEHYDROGENASE 269 U/L (85-227); PHOSPHORUS 7.1 MG/DL (2.3-4.5); POTASSIUM 4.8 MMOL/L (3.5-5.1); SODIUM 138 MMOL/L (135-145); TOTAL CARBON DIOXIDE 16.8 MMOL/L (24-32); TOTAL PROTEIN 5.4 G/DL (6.4-8.2); eGFR 19 ML/MIN
--- NOTE | 2022-02-04 07:43 | NUR ---
PAGE SENT Message: 4130c, LEAH SOLIS SAYS THEY NEED A CURRENT ORDER FOR LUNG SCAN. DID YOU WANT A LUNG SCAN TODAY? THANK YOU, HOSSEIN X [phone]
[2022-02-04] MEDS: K and/or MAG REPLACEMENT MC SCH ×4 (08:00→20:00)
[2022-02-04] MEDS: loperamide 2mg capsule PO SCH ×4 (08:00→23:52)
[2022-02-04] MEDS ORDERED: LORazepam 2 mg/ml vial IV ONE (08:45)
--- NOTE | 2022-02-04 08:58 | NUR ---
PAGE SENT Message: 2233Y, SARAVANAN ROSSI, [place] [place] ORDER. [place] STAFF REPORTS THEY CAN ONLY DO THE PERFUSION. PT MUST BE CLEARED FROM ISOLATION FOR THE AEROSOL. WOULD YOU LIKE TO ORDER ANOTHER COVID TEST ? THANK YOU, HOSSEIN [phone]
[2022-02-04] MEDS: insulin glargine (Lantus) pen - multi-dose SQ SCH (10:07)
[2022-02-04] MEDS: insulin Lispro (HumaLOG) vial - multi-dose SQ SCH ×4 (10:18→19:13)
[2022-02-04] MEDS: dexamethasone 4mg/ml inj IV SCH ×2 (10:21→20:10)
[2022-02-04] MEDS: furosemide 20 MG/2 ML vial IV SCH (10:23)
[2022-02-04] MEDS: clopidogrel 75mg tablet PO SCH (10:27)
[2022-02-04] MEDS: multivitamins, therapeutics tablet PO SCH (10:27)
[2022-02-04] MEDS: allopurinol 100mg tablet PO SCH (10:27)
[2022-02-04] MEDS: carVEDilol 12.5mg tablet PO SCH ×2 (10:27→20:09)
[2022-02-04] MEDS: atorvastatin 20mg tablet PO SCH (10:27)
[2022-02-04 11:00] VITALS: BP 146/67
[2022-02-04 11:06] LABS: HEMATOCRIT 27.7 % (42.0-52.0); MEAN CORPUSCULAR HGB CONC 33.2 g/dL (33.0-36.5); MEAN CORPUSCULAR VOLUME 90.4 FL (78-98); PLATELET COUNT 148 X10'3 (140-440); RED BLOOD COUNT 3.06 X10'6 (4.70-6.10); RED CELL DISTRIBUTION WIDTH 15.6 % (11.5-14.5); WHITE BLOOD COUNT 7.6 X10'3 (4.5-11.0)
[2022-02-04 11:13] LABS: HEMOGLOBIN 9.2 g/dl (14.0-17.9)
--- NOTE | 2022-02-04 11:26 | NUR ---
I MISTAKENLY UNDID HUMALOG ADMIN THIS MORNING I MISUNDERSTOOD PRIMARY RN. WE HAD A MISCOMMUNICATION. pT WAS ADMINISTERED HUMALOG THIS MORNING AROUND 10AM. 29 UNITS WAS ADMINISTERED PER PROTOCOL . I COULD NOT FIGURE OUT HOW TO CHANGE TIME TO REFLECT ACTUAL ADMIN TIME .
[2022-02-04 15:00] VITALS: BP 163/71
--- NOTE | 2022-02-04 18:16 | NUR ---
Problems reprioritized. Patient report given, questions answered & plan of care reviewed with KEISHA RN.
[2022-02-04 18:30] VITALS: BP 156/64
[2022-02-04 23:00] VITALS: BP 105/66
[2022-02-05] VITALS (7 sets, daily range): BP systolic 107–177; BP diastolic 63–76
[2022-02-05 06:08] LABS: BASOPHILS % (AUTO) 0.3 % (0-1); EOSINOPHILS % (AUTO) 0 % (0-6); HEMOGLOBIN 7.3 g/dl (14.0-17.9); LYMPHOCYTES # (AUTO) 0.2 X10'3 (1.1-4.8); LYMPHOCYTES % (AUTO) 4.1 % (21-51); MEAN CORPUSCULAR HEMOGLOBIN 30.2 PG (27.0-31.0); MEAN CORPUSCULAR HGB CONC 33.7 g/dL (33.0-36.5); MEAN CORPUSCULAR VOLUME 89.7 FL (78-98); MEAN PLATELET VOLUME 9.8 FL (7.4-10.4); MONOCYTES # (AUTO) 0.1 X10'3 (0-0.9); NEUTROPHILS # (AUTO) 3.9 X10'3 (1.8-7.7); NEUTROPHILS % (AUTO) 92.6 % (42-75); PLATELET COUNT 102 X10'3 (140-440); RED BLOOD COUNT 2.43 X10'6 (4.70-6.10); RED CELL DISTRIBUTION WIDTH 15.3 % (11.5-14.5); WHITE BLOOD COUNT 4.3 X10'3 (4.5-11.0)
[2022-02-05 06:12] LABS: D-DIMER 3.02 MG/L FEU (0-0.50)
[2022-02-05 06:14] LABS: HEMATOCRIT 21.8 % (42.0-52.0)
[2022-02-05 06:23] LABS: ALANINE AMINOTRANSFERASE 31 U/L (12-78); ALBUMIN 2.1 G/DL (3.4-5.0); ALBUMIN/GLOBULIN RATIO 0.8 (1.1-1.5); ALKALINE PHOSPHATASE 93 IU/L (46-116); ANION GAP 13 (8-16); ASPARTATE AMINO TRANSFERASE 16 U/L (10-37); BILIRUBIN,TOTAL 0.3 MG/DL (0.1-1.0); BLOOD UREA NITROGEN 125 MG/DL (7-18); C-REACTIVE PROTEIN 1.19 MG/DL (0.0-0.5); CALCIUM 6.7 MG/DL (8.5-10.1); CHLORIDE 108 MMOL/L (99-107); CREATININE 3.05 MG/DL (0.60-1.10); GLUCOSE 153 MG/DL (70-104); LACTATE DEHYDROGENASE 262 U/L (85-227); MAGNESIUM 2.1 MG/DL (1.5-2.4); PHOSPHORUS 7.1 MG/DL (2.3-4.5); POTASSIUM 4.6 MMOL/L (3.5-5.1); SODIUM 140 MMOL/L (135-145); TOTAL CARBON DIOXIDE 18.9 MMOL/L (24-32); TOTAL PROTEIN 4.9 G/DL (6.4-8.2); eGFR 21 ML/MIN
--- NOTE | 2022-02-05 06:25 | NUR ---
Message: 3024a, SARAVANAN ROSSI, CRITICAL LAB, HCT 21.8. HGB 7.3. THANK YOU, HOSSEIN Hennessy [phone]
--- NOTE | 2022-02-05 06:49 | NUR ---
Patient in room PCU 3024. I have received report from LALIT VALDES, and had the opportunity to ask questions and assume patient care.
[2022-02-05] MEDS: K and/or MAG REPLACEMENT MC SCH ×4 (07:50→19:53)
[2022-02-05] MEDS: loperamide 2mg capsule PO SCH ×3 (08:00→19:53)
[2022-02-05] MEDS: hydrALAZINE 25 MG tablet PO SCH ×2 (08:48→16:19)
[2022-02-05] MEDS: clopidogrel 75mg tablet PO SCH (08:48)
[2022-02-05] MEDS: multivitamins, therapeutics tablet PO SCH (08:49)
[2022-02-05] MEDS: atorvastatin 20mg tablet PO SCH (08:49)
[2022-02-05] MEDS: carVEDilol 12.5mg tablet PO SCH ×2 (08:49→19:17)
[2022-02-05] MEDS: allopurinol 100mg tablet PO SCH (08:49)
[2022-02-05] MEDS: furosemide 20 MG/2 ML vial IV SCH (08:51)
[2022-02-05] MEDS: dexamethasone 4mg/ml inj IV SCH (08:52)
[2022-02-05] MEDS: insulin Lispro (HumaLOG) vial - multi-dose SQ SCH ×3 (09:11→19:16)
[2022-02-05] MEDS: insulin glargine (Lantus) pen - multi-dose SQ SCH (09:14)
[2022-02-05] MEDS: sodium bicarbonate (8.4%) inj. 100 MEQ in sodium chloride 0.45% 1,000 ML IV SCH (14:10)
--- NOTE | 2022-02-05 18:21 | NUR ---
Problems reprioritized. Patient report given, questions answered & plan of care reviewed with Steven REINOSO.
--- NOTE | 2022-02-05 18:30 | NUR ---
Patient in room PCU 3024. I have received report from panda and had the opportunity to ask questions and assume patient care.
--- NOTE | 2022-02-05 18:51 | NUR ---
Problems reprioritized. Patient report given, questions answered & plan of care reviewed with LALIT OHARA. Addendum: 02/05/22 at 1853 by Rosana Ugalde RN WRONG NURSE, REPORT GIVEN TO KEMAR HAMILTON.
[2022-02-06] VITALS (7 sets, daily range): BP systolic 101–176; BP diastolic 62–74
[2022-02-06] MEDS: hydrALAZINE 25 MG tablet PO SCH ×3 (00:43→16:48)
[2022-02-06] MEDS: sodium bicarbonate (8.4%) inj. 100 MEQ in sodium chloride 0.45% 1,000 ML IV SCH ×2 (04:38→17:14)
--- NOTE | 2022-02-06 06:12 | NUR ---
Problems reprioritized. Patient report given, questions answered & plan of care reviewed with panda.
[2022-02-06 07:05] LABS: BASOPHILS % (AUTO) 0.3 % (0-1); EOSINOPHILS % (AUTO) 0.1 % (0-6); HEMATOCRIT 23.6 % (42.0-52.0); HEMOGLOBIN 7.9 g/dl (14.0-17.9); LYMPHOCYTES # (AUTO) 0.3 X10'3 (1.1-4.8); LYMPHOCYTES % (AUTO) 4.3 % (21-51); MEAN CORPUSCULAR HEMOGLOBIN 30.1 PG (27.0-31.0); MEAN CORPUSCULAR HGB CONC 33.3 g/dL (33.0-36.5); MEAN CORPUSCULAR VOLUME 90.5 FL (78-98); MEAN PLATELET VOLUME 9.6 FL (7.4-10.4); MONOCYTES # (AUTO) 0.4 X10'3 (0-0.9); MONOCYTES % (AUTO) 6.4 % (2-12); NEUTROPHILS # (AUTO) 5.6 X10'3 (1.8-7.7); NEUTROPHILS % (AUTO) 88.9 % (42-75); PLATELET COUNT 101 X10'3 (140-440); RED BLOOD COUNT 2.61 X10'6 (4.70-6.10); RED CELL DISTRIBUTION WIDTH 15.2 % (11.5-14.5); WHITE BLOOD COUNT 6.3 X10'3 (4.5-11.0)
--- NOTE | 2022-02-06 07:11 | NUR ---
Patient in room PCU 3024. I have received report from Steven REINOSO and had the opportunity to ask questions and assume patient care.
[2022-02-06 07:55] LABS: PHOSPHORUS 6.5 MG/DL (2.3-4.5)
[2022-02-06] MEDS: dexamethasone 4mg/ml inj IV SCH (08:00)
[2022-02-06] MEDS: loperamide 2mg capsule PO SCH ×3 (08:00→19:08)
[2022-02-06] MEDS: K and/or MAG REPLACEMENT MC SCH ×4 (08:00→19:08)
[2022-02-06 09:01] LABS: ALBUMIN 2.3 G/DL (3.4-5.0); ANION GAP 15 (8-16); BLOOD UREA NITROGEN 121 MG/DL (7-18); BUN/CREATININE RATIO 39.2 (5.4-32.0); CALCIUM 6.7 MG/DL (8.5-10.1); CHLORIDE 108 MMOL/L (99-107); CREATININE 3.09 MG/DL (0.60-1.10); GLUCOSE 172 MG/DL (70-104); POTASSIUM 4.6 MMOL/L (3.5-5.1); SODIUM 143 MMOL/L (135-145); TOTAL CARBON DIOXIDE 20.3 MMOL/L (24-32); eGFR 20 ML/MIN
[2022-02-06] MEDS: atorvastatin 20mg tablet PO SCH (09:12)
[2022-02-06] MEDS: allopurinol 100mg tablet PO SCH (09:13)
[2022-02-06] MEDS: carVEDilol 12.5mg tablet PO SCH ×2 (09:13→19:05)
[2022-02-06] MEDS: furosemide 20 MG/2 ML vial IV SCH (09:14)
[2022-02-06] MEDS: multivitamins, therapeutics tablet PO SCH (09:14)
[2022-02-06] MEDS: clopidogrel 75mg tablet PO SCH (09:14)
--- NOTE | 2022-02-06 09:16 | NUR ---
Reassessment: ONS still pending physician approval in EMR though PO intake has significantly improved, documented with mostly 100% PO intake. [facility] 02/05. No nutrition intervention implemented at this time. Will continue to follow. Recommendations: 1) Continue CHO controlled diet 2) Glucerna TID; pending physician approval in EMR 3) Consider Phos binder w/ meals if MD agreeable 4) Bowel care per rx 5) Scaled weight this admit; subsequent weekly scaled weights Addendum: 02/06/22 at [address] Amended: Links added.
[2022-02-06] MEDS: insulin Lispro (HumaLOG) vial - multi-dose SQ SCH ×3 (09:21→19:02)
[2022-02-06] MEDS: insulin glargine (Lantus) pen - multi-dose SQ SCH (09:44)
--- NOTE | 2022-02-06 17:41 | NUR ---
Student documentation: I have reviewed and agree with all interventions, assessments performed and documented by LALIT STONE.
--- NOTE | 2022-02-06 18:12 | NUR ---
Problems reprioritized. Patient report given, questions answered & plan of care reviewed with Steven REINOSO.
--- NOTE | 2022-02-06 18:30 | NUR ---
Patient in room PCU 3024. I have received report from panda and had the opportunity to ask questions and assume patient care.
[2022-02-07] MEDS: hydrALAZINE 25 MG tablet PO SCH ×2 (00:09→07:39)
[2022-02-07 02:00] VITALS: BP 151/68
[2022-02-07 06:00] VITALS: BP 154/65
--- NOTE | 2022-02-07 06:17 | NUR ---
Problems reprioritized. Patient report given, questions answered & plan of care reviewed with fouzia.
--- NOTE | 2022-02-07 06:18 | NUR ---
Patient in room PCU 3024A. I have received report from KEMAR HAMILTON and had the opportunity to ask questions and assume patient care.
[2022-02-07 06:44] LABS: BASOPHILS % (AUTO) 0.3 % (0-1); EOSINOPHILS % (AUTO) 0 % (0-6); HEMATOCRIT 24.9 % (42.0-52.0); HEMOGLOBIN 8.3 g/dl (14.0-17.9); LYMPHOCYTES # (AUTO) 0.2 X10'3 (1.1-4.8); LYMPHOCYTES % (AUTO) 3.2 % (21-51); MEAN CORPUSCULAR HEMOGLOBIN 30.3 PG (27.0-31.0); MEAN CORPUSCULAR HGB CONC 33.4 g/dL (33.0-36.5); MEAN CORPUSCULAR VOLUME 90.7 FL (78-98); MEAN PLATELET VOLUME 9.5 FL (7.4-10.4); MONOCYTES # (AUTO) 0.3 X10'3 (0-0.9); MONOCYTES % (AUTO) 5.1 % (2-12); NEUTROPHILS # (AUTO) 5.9 X10'3 (1.8-7.7); NEUTROPHILS % (AUTO) 91.4 % (42-75); PLATELET COUNT 98 X10'3 (140-440); RED BLOOD COUNT 2.75 X10'6 (4.70-6.10); RED CELL DISTRIBUTION WIDTH 15.8 % (11.5-14.5); WHITE BLOOD COUNT 6.5 X10'3 (4.5-11.0)
[2022-02-07 07:01] LABS: ALANINE AMINOTRANSFERASE 41 U/L (12-78); ALBUMIN 2.5 G/DL (3.4-5.0); ALBUMIN/GLOBULIN RATIO 0.9 (1.1-1.5); ALKALINE PHOSPHATASE 121 IU/L (46-116); ANION GAP 13 (8-16); ASPARTATE AMINO TRANSFERASE 28 U/L (10-37); BILIRUBIN,TOTAL 0.4 MG/DL (0.1-1.0); BLOOD UREA NITROGEN 110 MG/DL (7-18); BUN/CREATININE RATIO 38.9 (5.4-32.0); CALCIUM 6.7 MG/DL (8.5-10.1); CHLORIDE 107 MMOL/L (99-107); CREATININE 2.83 MG/DL (0.60-1.10); GLUCOSE 190 MG/DL (70-104); PHOSPHORUS 6.1 MG/DL (2.3-4.5); POTASSIUM 4.6 MMOL/L (3.5-5.1); SODIUM 144 MMOL/L (135-145); TOTAL CARBON DIOXIDE 24.5 MMOL/L (24-32); TOTAL PROTEIN 5.3 G/DL (6.4-8.2); eGFR 22 ML/MIN
[2022-02-07] MEDS: atorvastatin 20mg tablet PO SCH (07:38)
[2022-02-07] MEDS: carVEDilol 12.5mg tablet PO SCH (07:39)
[2022-02-07] MEDS: multivitamins, therapeutics tablet PO SCH (07:39)
[2022-02-07] MEDS: allopurinol 100mg tablet PO SCH (07:39)
[2022-02-07] MEDS: clopidogrel 75mg tablet PO SCH (07:39)
[2022-02-07] MEDS: loperamide 2mg capsule PO SCH (07:40)
[2022-02-07] MEDS: dexamethasone 4mg/ml inj IV SCH (08:00)
[2022-02-07] MEDS: furosemide 20 MG/2 ML vial IV SCH (08:00)
[2022-02-07] MEDS: insulin Lispro (HumaLOG) vial - multi-dose SQ SCH (09:22)
[2022-02-07] MEDS: insulin glargine (Lantus) pen - multi-dose SQ SCH (09:24)
[2022-02-07 11:00] VITALS: BP 141/61
[2022-02-07] MEDS ORDERED: sodium bicarbonate 650mg tablet PO SCH (13:00)
--- NOTE | 2022-02-07 17:32 | NUR ---
PATIENT STABLE AND APPROPRIATE FOR TRANSFER, IVS REMOVED, TELE REMOVED, REPORT CALLED INTO LALIT FOY FROM [facility], PATIENT TAKEN TO [facility] BY THO BY THEIR STAFF
--- NOTE | 2022-02-13 14:54 | NUR ---
Case Management DC follow up: Patient DC to [facility].
== END 2022-02-07 14:00 | DRG 871 ==
LOC: ER 04:37 → ED HOLD 09:46 → PCU 3S 18:07
PROVIDERS: ADMIT Internal Medicine; ATTEND Internal Medicine
PROC: CB121ZZ Planar Nuclear Medicine Imaging of Lungs and Bronchi using Technetium 99m (Tc-99m) (ICD-10-PCS; principal; 2022-02-04)
DX: A41.9 Sepsis, unspecified organism (principal); I50.33 Acute on chronic diastolic (congestive) heart failure; J96.01 Acute respiratory failure with hypoxia; U07.1 COVID-19; J15.9 Unspecified bacterial pneumonia; J12.82 Pneumonia due to coronavirus disease 2019; E87.2 Acidosis; I13.0 Hypertensive heart and chronic kidney disease with heart failure and stage 1 through stage 4 chronic kidney disease, or unspecified chronic kidney disease; N18.4 Chronic kidney disease, stage 4 (severe); D63.8 Anemia in other chronic diseases classified elsewhere; D69.6 Thrombocytopenia, unspecified; E11.22 Type 2 diabetes mellitus with diabetic chronic kidney disease; E11.42 Type 2 diabetes mellitus with diabetic polyneuropathy; R19.7 Diarrhea, unspecified; R79.89 Other specified abnormal findings of blood chemistry; R81 Glycosuria; E11.65 Type 2 diabetes mellitus with hyperglycemia; E11.51 Type 2 diabetes mellitus with diabetic peripheral angiopathy without gangrene; E78.5 Hyperlipidemia, unspecified; I25.10 Atherosclerotic heart disease of native coronary artery without angina pectoris; Z83.3 Family history of diabetes mellitus; Z86.718 Personal history of other venous thrombosis and embolism; Z86.73 Personal history of transient ischemic attack (TIA), and cerebral infarction without residual deficits; Z87.442 Personal history of urinary calculi; Z90.49 Acquired absence of other specified parts of digestive tract; Z88.8 Allergy status to other drugs, medicaments and biological substances; Z79.899 Other long term (current) drug therapy; Z79.4 Long term (current) use of insulin
CPT/HCPCS: 36415; 36600; 71045; 78582; 80048; 80053; 80202; 81001; 82803; 82948; 83605; 83615; 83735; 83880; 84100; 84145; 85007; 85018; 85025; 85027; 85379; 85730; 86140; 87040; 87081; 87635; 93005; 93970; 94760; 96374; 96375; 97110; 97116; 97162; 97530; 99285; A4349; A4620; A6212; A9539; A9540; G0378; J0360; J0456; J0696; J1100; J1644; J1815; J1940; J2060; J3370; J3480; J3490; J7030; J7040; J7042; J7050; U0003; U0005

== ENCOUNTER 2022-02-24 22:20 | Emergency (ER) | payer OTHER, MEDICARE, BC ==
[~2022-02-24] VITALS: Ht 195.6 cm; Wt 108.2 kg
[~2022-02-24 22:20] MED LIST changes: -BENZ-38 PO; +BENZ-49 PO; +BENZ1LOZ74 MM; -Benzocaine/Menthol MM; -LOPE-144 PO; +LOPE2TAB25 PO; +PRED10TA PO; -PRED10TA23 PO
[2022-02-25] MEDS ORDERED: ondansetron 4mg rapidly disintigrating tab PO ONE (00:20)
[2022-02-25] MEDS ORDERED: levoFLOXACIN 250mg tablet PO ONE (00:20)
[2022-02-25] MEDS ORDERED: CefTRIAXone 1000mg IM Kit (w/lidocaine diluent) IM ONE (00:20)
[2022-02-25] MEDS ORDERED: LEVO250T74 PO (00:25)
[2022-02-25 00:39] LABS: CLARITY,URINE CLOUDY (Clear); COLOR,URINE YELLOW (Yellow); GLUCOSE, URINE 250 mg/dl (Neg); KETONES,URINE NEGATIVE (Neg); LEUKOCYTE ESTERASE ,URINE SMALL (Neg); NITRITES, URINE NEGATIVE (Neg); OCCULT BLOOD,URINE SMALL (Neg); PROTEIN,URINE >=300 mg/dl (Neg); UROBILINOGEN,URINE 0.2 E.U/dL (0.2-1.0)
[2022-02-25 00:57] LABS: UA COLLECTION TYPE CLN CATCH MIDSTREAM
[2022-02-25 01:01] LABS: WBC,URINE TNTC /HPF (0-4)
[2022-02-25 01:02] LABS: BACTERIA,URINE FEW /HPF (Neg); MUCUS STRANDS NONE SEEN /LPF (Neg); SQUAMOUS EPITHELIAL CELL,UR FEW /LPF (FEW)
[2022-02-25 01:27] VITALS: BP 116/61
== END 2022-02-25 01:31 ==
LOC: ER 22:21
DX: N39.0 Urinary tract infection, site not specified (principal); S80.12XA Contusion of left lower leg, initial encounter; S80.11XA Contusion of right lower leg, initial encounter; I12.9 Hypertensive chronic kidney disease with stage 1 through stage 4 chronic kidney disease, or unspecified chronic kidney disease; E11.22 Type 2 diabetes mellitus with diabetic chronic kidney disease; N18.9 Chronic kidney disease, unspecified; Z88.8 Allergy status to other drugs, medicaments and biological substances; Z98.890 Other specified postprocedural states; Z90.49 Acquired absence of other specified parts of digestive tract; X58.XXXA Exposure to other specified factors, initial encounter; Y93.89 Activity, other specified; Y92.89 Other specified places as the place of occurrence of the external cause; Y99.8 Other external cause status
CPT/HCPCS: 81001; 82948; 87077; 87088; 87186; 96372; 99283; J0696